=== PATIENT | female | born 2000 | race Caucasian/White ===

== ENCOUNTER 2022-02-27 16:49 | Emergency (ER) | payer OTHER, MEDICAID, SELFPAY ==
[2022-02-27 17:08] VITALS: BP 132/73; PULSE 93; RESP 16; TEMP 37; O2SAT 98; BMI 39.0
[2022-02-27 18:44] LABS: Influenza A - CEPHEID Flu A NEGATIVE (NEGATIVE); Influenza B - CEPHEID Flu B NEGATIVE (NEGATIVE); Respiratory Syncytial Virus Negative (Negative)
--- NOTE | 2022-02-27 19:15 | ED.URI ---
HPI - URI/Sore Throat General Chief Complaint: Upper Respiratory Symptoms Stated Complaint: Strep Throat Symptoms Time Seen by Provider: 02/27/22 17:38 Source: patient Mode of arrival: Ambulatory Related Data Allergies Allergy/AdvReac Type Severity Reaction Status Date / Time No Known Drug Allergies Allergy Verified 02/27/22 17:12 Patient History Social History Smoking Status: Current every day smoker Smoking Status: Current every day smoker tobacco type: vaping alcohol intake frequency: 0-2 drinks per day Substance Use Type: marijuana Exam Initial Vital Signs Initial Vital Signs: Vital Signs Temperature 98.6 F 02/27/22 17:08 Pulse Rate 93 H 02/27/22 17:08 Respiratory Rate 16 02/27/22 17:08 Blood Pressure 132/73 02/27/22 17:08 Pulse Oximetry 98 02/27/22 17:08 Oxygen Delivery Method 02/27/22 17:08 Course Orders Ordered: ED Orders 02/27/22 17:15 Throat Culture Stat 02/27/22 18:00 Covid-19 + FLU A/B + RSV - PCR Stat Vital Signs Vital signs: Vital Signs - 8 hr 02/27/22 17:08 Temperature 98.6 F Pulse Rate 93 H Respiratory Rate 16 Blood Pressure 132/73 Pulse Oximetry 98 Oxygen Delivery Method Room Air MDM - URI/Sore Throat Lab Data Labs: Point of Care Testing Rapid Strep A Negative Discharge Plan Departure Referrals: Miscellaneous,Doctor [Primary Care Provider] -
[2022-02-27 19:51] LABS: COVID-19 CEPHEID 4-PLEX PCR Negative (Negative)
== END 2022-02-27 21:27 | disposition left against medical advice (07) ==
PROVIDERS: Emergency Provider Emergency Medicine
DX: R68.89 Other general symptoms and signs (principal)
CPT/HCPCS: 0241U; 87070; 87077; 87147; 87880; 99282

== ENCOUNTER 2023-04-29 21:19 | Emergency (ER) | payer OTHER, MEDICAID, SELFPAY ==
[2023-04-29 21:26] VITALS: BP 134/80; PULSE 92; RESP 18; TEMP 36; O2SAT 99; BMI 36.2
[2023-04-29 22:07] LABS: Amorphous Sediment Urine 1+; Bacteria Urine Moderate (10-30); Culture Indicated Urine Cult Not Indicated; RBC Urine None Seen (0-5/HPF); Squamous Epithelial Cell Urine 10-30 /HPF (0-5/HPF); Urine Volume 10mL (spun); WBC Urine 0-1/HPF (0-5/HPF)
--- NOTE | 2023-04-30 00:44 | ED.FEMALEGU ---
HPI - Female Genitourinary General Chief complaint: Abdominal Pain Stated complaint: ABD Pain/thinks ectopic Time Seen by Provider: 04/30/23 00:34 Source: patient Mode of arrival: Ambulatory History of Present Illness HPI Narrative: 22-year-old female presents concerned that she may have an ectopic . Patient states that she had a Nexplanon device that is out of date. This morning when she wiped she noticed pink streaking on the toilet tissue. She has had intermittent right-sided pelvic pain for several weeks in his concerned that she may have an ectopic . Denies history of ectopic , did not take a home test prior to presentation to the emergency department. No medications taken at home for symptoms. Related Data Allergies Allergy/AdvReac Type Severity Reaction Status Date / Time No Known Drug Allergies Allergy Verified 02/27/22 17:12 Review of Systems Review of Systems Narrative: Otherwise negative Patient History tobacco type: vaping alcohol intake frequency: 0-2 drinks per day Substance Use Type: marijuana Exam Initial Vital Signs Initial Vital Signs: Vital Signs Temperature 96.8 F L 04/29/23 21:26 Pulse Rate 92 H 04/29/23 21:26 Respiratory Rate 18 04/29/23 21:26 Blood Pressure 134/80 04/29/23 21:26 Pulse Oximetry 99 04/29/23 21:26 Oxygen Delivery Method Room Air 04/29/23 21:26 Const: Awake, alert, no acute distress, nontoxic appearing Cardiac: regular rate, regular rhythm RESP: unlabored, clear bilaterally, no wheezing GI: Atraumatic, soft, right sided pelvic tenderness to deep palpation, no rebound or guarding MSK: Atraumatic, full range of motion, pulses equal Skin: Warm, Dry, intact, no rashes Neuro: AO x3, CN II-XII grossly intact, moves all extremities Course Orders Ordered: ED Orders 04/29/23 21:41 Urine Culture Stat Urine Microscopic Stat 04/30/23 00:43 US pelvic complete Stat Discontinued Medications Ondansetron HCl (Ondansetron 4 Mg/2 Ml Inj) 4 mg IV NOW PRN PRN Reason: Nausea And Vomiting Ondansetron HCl (Ondansetron 4 Mg Odt) 4 mg SL NOW PRN PRN Reason: Nausea And Vomiting Vital Signs Vital signs: Vital Signs - 8 hr 04/29/23 21:26 04/30/23 02:00 Temperature 96.8 F L 97.8 F Pulse Rate 92 H 82 Respiratory Rate 18 16 Blood Pressure 134/80 128/72 Pulse Oximetry 99 98 Oxygen Delivery Method Room Air Room Air MDM - Female Genitourinary Differential Diagnosis Differential diagnosis: Likely urinary tract infection, bacterial vaginosis and trichomoniasis Lab Data Labs: Lab Results 04/29/23 Range/Units 21:41 Urine RBC None seen (0-5/HPF) Urine WBC 0-1/hpf (0-5/HPF) Ur Squamous Epith Cells 10-30 /hpf H (0-5/HPF) Amorphous Sediment 1+ Urine Bacteria Moderate (10-30) H (None) Ur Culture Indicated? 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 Additional endovaginal scanning was necessary due to incomplete visualization of the adnexal and endometrial structures by transabdominal scanning. COMPARISON: None. FINDINGS: Uterus: Uterus is anteverted and normal in size at 5.9 x 3 x 2.2 cm. The myometrium is homogeneous. The endometrium measures 3 mm combined thickness. No endometrial mass or fluid. Ovaries: The right ovary measures 3.1 x 1.9 x 1.6 cm, with a calculated ovarian volume of 4.9 cc. The left ovary measures 2 x 1.5 x 1.6 cm, with a calculated ovarian volume of 2.5 cc. The ovaries have a normal sonographic appearance. Less than 12 follicles can be seen in each ovary.. No adnexal masses are seen. Normal arterial and venous flow is seen in bilateral ovaries on color Doppler images. Other: No pathologic free abdominal or pelvic fluid. IMPRESSION: Unremarkable ultrasound examination uterus and bilateral ovaries. We strive to produce accurate, complete, and clear reports of imaging services. To assist us in improving patient care, this report was composed using standard report templates and voice recognition software. Therefore, it may contain abnormal punctuation, insertions and/or omissions. Occasional wrong-word or sound-alike substitutions may occur. Though we review the report and make efforts to correct it, we do recommend that the report be read carefully in proper context to recognize any text inaccuracies. Dictated by: Sarath Valencia M.D. on 04/30/2023 at 1:42 Approved by: Sarath Valencia M.D. on 04/30/2023 at 1:44 [facility] Narrative Medical decision making narrative: Well-appearing patient with several weeks of pelvic pain and then small amount of pink tinge when she wiped today. Patient is very concerned that she may have an ectopic even though she did not take a test prior to arrival. She does have an out of date Nexplanon device in her left arm. Abdomen is soft but she does have tenderness in the deep pelvic region. Urine test negative. They were bacteria in the urine however numerous squamous cells, patient denying urinary symptoms at this time. Ultrasound shows no acute pelvic pathology, no evidence of ectopic or abnormal ovarian cystic lesions. Patient reassured of normal exam and imaging findings, counseled to follow up with OBGYN for removal of her Nexplanon and further management of her pelvic pain. Discharge Plan Departure Patient Disposition: Home Clinical Impression: Pelvic pain Instructions: DI for Pelvic Pain Activity Restrictions/Additional Instructions: Follow up [facility] OBGYN. Tylenol and motrin as needed for pain. Referrals: Gerard Bass MD [Physician] - Miscellaneous,MD Gustavo [Primary Care Provider] - Stand Alone Forms: Patient Portal/API, Work Release Note
[2023-04-30 02:00] VITALS: BP 128/72; PULSE 82; RESP 16; TEMP 36.6; O2SAT 98
== END 2023-04-30 02:00 | disposition home or self-care (01) ==
PROVIDERS: Emergency Provider Emergency Medicine
DX: R10.2 Pelvic and perineal pain (principal); Z97.5 Presence of (intrauterine) contraceptive device
CPT/HCPCS: 76830; 76856; 81003; 81015; 81025; 87086; 93975; 99282; 99283

== ENCOUNTER 2023-05-18 17:52 | Emergency (ER) | payer OTHER, MEDICAID, SELFPAY ==
[2023-05-18 17:59] VITALS: BP 128/81; PULSE 96; RESP 18; TEMP 36.8; O2SAT 99; BMI 42.3
--- NOTE | 2023-05-18 18:30 | DI.RAD.S_ITS ---
PROCEDURE: XR HIP W PEL IF DONE RT 2V INDICATIONS: R hip pain TECHNIQUE: AP pelvis with lateral view(s) of the right hip(s). COMPARISON: None. FINDINGS: Bones: No fractures or dislocations. Pelvic ring appears intact. No suspicious bony lesions. Soft tissues: The visualized bowel gas pattern is normal. No suspicious soft tissue calcifications. IMPRESSION: No right hip fracture or dislocation. No evidence of avascular necrosis. Dictated by: Sarath Valencia M.D. on 05/18/2023 at 18:56 Approved by: Sarath Valencia M.D. on 05/18/2023 at 18:57
--- NOTE | 2023-05-18 19:36 | ED.LOWEXIN ---
HPI - Extremity Injury (Lower) General Chief Complaint: Extremity Injury, Lower Stated Complaint: Hip px shooting to knee cap Time Seen by Provider: 05/18/23 18:29 Source: patient Mode of arrival: Ambulatory Limitations: no limitations History of Present Illness HPI Narrative: 22-year-old female here for evaluation of right hip pain. She states that she fell several months ago landing on her right hip. Since that time she has had discomfort specifically with standing and walking. Occasionally feels like her hip is getting stuck. Has not been evaluated for this past. Has not tried anything for the symptoms. She states that it feels like it is in her groin and radiates down to her knee. Related Data Previous Rx's Medication Instructions Recorded tramadol 50 mg tablet 50 mg PO Q8H PRN pain #10 tabs 05/18/23 tramadol 50 mg tablet 50 mg PO Q8H PRN pain #10 tabs 05/18/23 Allergies Allergy/AdvReac Type Severity Reaction Status Date / Time No Known Drug Allergies Allergy Verified 02/27/22 17:12 Review of Systems Constitutional Constitutional: Reports system reviewed and no additional complaints, except as documented Musculoskeletal Musculoskeletal: Reports system reviewed and no additional complaints, except as documented Integumentary/Breasts Skin/Breast: Reports system reviewed and no additional complaints, except as documented Patient History Social History Smoking Status: Current every day smoker Smoking Status: Current every day smoker tobacco type: vaping alcohol intake frequency: 0-2 drinks per day Substance Use Type: marijuana Exam Initial Vital Signs Initial Vital Signs: Vital Signs Temperature 98.3 F 05/18/23 17:59 Pulse Rate 96 H 05/18/23 17:59 Respiratory Rate 18 05/18/23 17:59 Blood Pressure 128/81 05/18/23 17:59 Pulse Oximetry 99 05/18/23 17:59 Oxygen Delivery Method Room Air 05/18/23 17:59 HENSD Head: normal to inspection and normocephalic Neuro General: patient alert and patient awake Gait: normal gait Extrem Other: No gross deformities. Minimal if any tenderness along the greater trochanter on the right. Some discomfort along the SI joint on the right. Course Orders Ordered: ED Orders 05/18/23 18:30 XR hip w pel if done RT 2V Stat Vital Signs Vital signs: Vital Signs - 8 hr 05/18/23 17:59 05/18/23 19:50 Temperature 98.3 F Pulse Rate 96 H 84 Respiratory Rate 18 14 Blood Pressure 128/81 133/77 Pulse Oximetry 99 96 Oxygen Delivery Method Room Air Room Air MDM - Extremity Injury (Lower) Imaging Data Extremity x-ray #1: Radiologist's Impression: PROCEDURE: XR HIP W PEL IF DONE RT 2V INDICATIONS: R hip pain TECHNIQUE: AP pelvis with lateral view(s) of the right hip(s). COMPARISON: None. FINDINGS: Bones: No fractures or dislocations. Pelvic ring appears intact. No suspicious bony lesions. Soft tissues: The visualized bowel gas pattern is normal. No suspicious soft tissue calcifications. IMPRESSION: No right hip fracture or dislocation. No evidence of avascular necrosis. [facility] Narrative Medical decision making narrative: No fractures or dislocations. Low suspicion for septic joint x-rays discuss this with the patient. Advised that she make contact with the primary care doctor so that she can have further workup to include potential physical therapy her even more advanced imaging such as an MRI. There was a possibility for soft tissue injury such as a labral tear although no emergent MRI needed. Patient was given return precautions. Advised she do Tylenol and ibuprofen for discomfort. Discharge Plan Departure Patient Disposition: Home Clinical Impression: Hip pain Instructions: DI for Hip Pain Activity Restrictions/Additional Instructions: I do recommend that you contact [phone] to help you establish a primary care doctor as you are most likely going to need further evaluation to include either physical therapy or more advanced imaging like an MRI. Continue to take Tylenol/ibuprofen for discomfort. Return to the emergency department for new symptoms. Prescriptions: New tramadol 50 mg tablet 50 mg PO Q8H PRN (Reason: pain) Qty: 10 0RF tramadol 50 mg tablet 50 mg PO Q8H PRN (Reason: pain) Qty: 10 0RF Referrals: Miscellaneous,DoctorMD [Primary Care Provider] - Stand Alone Forms: Patient Portal/API
[2023-05-18 19:50] VITALS: BP 133/77; PULSE 84; RESP 14; O2SAT 96
== END 2023-05-18 19:51 | disposition home or self-care (01) ==
PROVIDERS: Emergency Provider Emergency Medicine
DX: M25.551 Pain in right hip (principal)
CPT/HCPCS: 73502; 99281; 99283

== ENCOUNTER 2023-09-18 18:26 | Emergency (ER) | payer OTHER, MEDICAID, SELFPAY ==
[2023-09-18 18:38] VITALS: BP 146/100; PULSE 102; RESP 18; TEMP 37.3; O2SAT 98; BMI 33.5
[2023-09-18 19:09] LABS: Alanine Aminotransferase 35 IU/L (<35); Albumin 4.7 g/dL (3.5-5.0); Albumin Globulin Ratio 1.3 (1.0-2.8); Alkaline Phosphatase 53 U/L (38-126); Aspartate Aminotransferase 37 IU/L (14-36); BUN Creatinine Ratio 14.3 (6-22); Bilirubin Total 5.5 mg/dL (0.2-1.3); Blood Urea Nitrogen 11 mg/dL (7-17); Calcium 9.1 mg/dL (8.4-10.2); Carbon Dioxide 21 mmol/L (22-32); Chloride 107 mmol/L (98-107); Estimated Glomerular Filt Rate > 60 mL/min (>60); Globulin 3.6 g/dL (1.7-4.1); Glucose 93 mg/dL (70-100); HEMOLYSIS < 15 (0-50); Lipase 65 U/L (23-300); Potassium 3.8 mmol/L (3.4-5.1); Sodium 139 mmol/L (137-145); Total Protein 8.3 g/dL (6.3-8.2)
[2023-09-18 19:18] LABS: Bacteria Urine Few (2-10); RBC Urine None Seen (0-5/HPF); Squamous Epithelial Cell Urine 1-5 /HPF (0-5/HPF); Urine Volume 10mL (spun); WBC Urine 1-5/HPF (0-5/HPF)
[2023-09-18 19:19] LABS: Culture Indicated Urine Cult Not Indicated
[2023-09-18 19:23] LABS: Add Manual Diff / Slide Review NO; Basophils Absolute Auto 0 /uL (0-100); Basophils Percent Auto 0.2 % (0-2); Eosinophils Absolute Auto 300 /uL (0-450); Eosinophils Percent Auto 1.6 % (2-4); Hematocrit 31.4 % (36-46); Hemoglobin 11.4 g/dL (12.0-16.0); Lymphocytes Absolute Auto 5400 /uL (1100-4500); Lymphocytes Percent Auto 25.5 % (25-40); Mean Corpuscular HGB Conc 36.2 % (30-36); Mean Corpuscular Hemoglobin 31.5 PG (26-34); Mean Corpuscular Volume 86.8 fL (80-100); Monocytes Absolute Auto 1400 /uL (0-900); Monocytes Percent Auto 6.5 % (3-14); Neutrophils Absolute Auto 14100 /uL (1500-7000); Neutrophils Percent Auto 66.2 % (50-75); Platelet Count 545 X10^3/uL (150-400); Red Blood Cell Count 3.62 X10^6/uL (4.0-5.2); Red Cell Distribution Width 14.5 % (11.6-14.8); White Blood Cell Count 21.3 X10^3/uL (4.5-11.0)
--- NOTE | 2023-09-18 21:37 | ED_ITS ---
HPI - Female Genitourinary General Chief complaint: Urogenital-Female Stated complaint: blood in urine, poss jaundice Time Seen by Provider: 09/18/23 20:24 Source: patient Mode of arrival: Ambulatory History of Present Illness HPI Narrative: 22-year-old female presents for hematuria, possible yellowing of her eyes. Patient states that she has been in her usual state of health when she noticed a small amount of blood in her urine today. She placed a tampon in her vagina to make sure that there was no blood coming from her vagina contributing to the blood in her urine. Patient also states that her boyfriend noticed her eyes may be somewhat yellow today, prompting her visit to the emergency department. Patient denies pain, Tylenol use, alcohol use. Patient states she has been in her usual state of health up until today. Related Data Previous Rx's Medication Instructions Recorded tramadol 50 mg tablet 50 mg PO Q8H PRN pain #10 tabs 05/18/23 tramadol 50 mg tablet 50 mg PO Q8H PRN pain #10 tabs 05/18/23 Allergies Allergy/AdvReac Type Severity Reaction Status Date / Time No Known Drug Allergies Allergy Verified 09/18/23 18:44 Review of Systems Review of Systems Narrative: See HPI Patient History tobacco type: vaping alcohol intake frequency: a few times a month Substance Use Type: marijuana Exam Initial Vital Signs Initial Vital Signs: Vital Signs Temperature 99.2 F 09/18/23 18:38 Pulse Rate 102 H 09/18/23 18:38 Respiratory Rate 18 09/18/23 18:38 Blood Pressure 146/100 H 09/18/23 18:38 Pulse Oximetry 98 09/18/23 18:38 Oxygen Delivery Method Room Air 09/18/23 18:38 Const: Awake, alert, no acute distress, nontoxic appearing HEENT: mild scleral icterus, EOMI Cardiac: regular rate, regular rhythm RESP: unlabored, clear bilaterally, no wheezing GI: Soft, nontender, nondistended, no rebound, no guarding MSK: Atraumatic, full range of motion, no CVA tenderness Skin: Warm, Dry, intact, no rashes Neuro: AO x3, CN II-XII grossly intact, moves all extremities Course Orders Ordered: Discontinued Medications Ondansetron HCl (Ondansetron 4 Mg/2 Ml Inj) 4 mg IV NOW PRN PRN Reason: Nausea And Vomiting Ondansetron HCl (Ondansetron 4 Mg Odt) 4 mg PO NOW PRN PRN Reason: Nausea And Vomiting Vital Signs Vital signs: Vital Signs - 8 hr 09/18/23 18:38 Temperature 99.2 F Pulse Rate 102 H Respiratory Rate 18 Blood Pressure 146/100 H Pulse Oximetry 98 Oxygen Delivery Method Room Air MDM - Female Genitourinary Differential Diagnosis Differential diagnosis: Likely urinary tract infection, bacterial vaginosis and trichomoniasis Lab Data 09/18/23 18:50 09/18/23 18:50 Labs: Lab Results 09/18/23 Range/Units 18:50 WBC 21.3 H (4.5-11.0) X10^3/uL RBC 3.62 L (4.0-5.2) X10^6/uL Hgb 11.4 L (12.0-16.0) g/dL Hct 31.4 L (36-46) % MCV 86.8 (80-100) fL MCH 31.5 (26-34) PG MCHC 36.2 H (30-36) % RDW 14.5 (11.6-14.8) % Plt Count 545 H (150-400) X10^3/uL Neut % (Auto) 66.2 (50-75) % Lymph % (Auto) 25.5 (25-40) % [place] % (Auto) 6.5 (3-14) % Eos % (Auto) 1.6 L (2-4) % Baso % (Auto) 0.2 (0-2) % Neut # (Auto) 28928 H (9945-7863) /uL Lymph # (Auto) 5400 H (2511-2225) /uL [place] # (Auto) 1400 H (0-900) /uL Eos # (Auto) 300 (0-450) /uL Baso # (Auto) 0 (0-100) /uL Sodium 139 (137-145) mmol/L Potassium 3.8 (3.4-5.1) mmol/L Chloride 107 (98-107) mmol/L Carbon Dioxide 21 L (22-32) mmol/L BUN 11 (7-17) mg/dL Creatinine 0.77 (0.52-1.04) mg/dL Estimated GFR > 60 (>60) mL/min BUN/Creatinine Ratio 14.3 (6-22) Glucose 93 (70-100) mg/dL Calcium 9.1 (8.4-10.2) mg/dL Total Bilirubin 5.5 H (0.2-1.3) mg/dL AST 37 H (14-36) IU/L ALT 35 H (<35) IU/L Alkaline Phosphatase 53 (38-126) U/L Total Protein 8.3 H (6.3-8.2) g/dL Albumin 4.7 (3.5-5.0) g/dL Globulin 3.6 (1.7-4.1) g/dL Albumin/Globulin Ratio 1.3 (1.0-2.8) Lipase 65 (23-300) U/L Urine RBC None seen (0-5/HPF) Urine WBC 1-5/hpf (0-5/HPF) Ur Squamous Epith Cells 1-5 /hpf D (0-5/HPF) Urine Bacteria Few (2-10) H (None) Ur Culture Indicated? Cult not indicated Vol Urine Centrifuged 10ml (spun) Point of Care Testing Test Results Negative Urine Dip Bedside Urine Glucose Negative Bedside Urine Bilirubin - Negative Bedside Urine Ketone - Negative Urine Specific [place] 1.025 Bedside Urine Occult Blood +++ Bedside Urine pH 5.5 Bedside Urine Protein +/- 15 Bedside Urine Urobilinogen - Negative Bedside Urine Nitrite - Negative Bedside Urine Leukocytes +/- [address] scan - abdomen/pelvis: Radiologist's Impression: PROCEDURE: CT ABDOMEN PELVIS W CON INDICATIONS: HEMATURIA, ELEVATED LIVER ENZYMES TECHNIQUE: After the administration of intravenous contrast, axial sections acquired from the lung bases to the pubic symphysis. Coronal and sagittal reformats were performed. For radiation dose reduction, the following was used: automated exposure control, adjustment of mA and/or kV according to patient size. COMPARISON: None. FINDINGS: Image quality: Diagnostic. Lower Chest: No significant findings. ABDOMEN: Liver: No solid mass. Gallbladder: No radiopaque gallstones or wall thickening. Biliary ducts: No biliary dilation. Pancreas: No ductal dilation. Spleen: Spleen is enlarged, measuring up to 14.5 cm in anterior-posterior dimension. Adrenal Glands: No adrenal nodules. Kidneys and Ureters: No hydronephrosis. No solid mass. No complex renal cystic lesion which requires follow up. Subcentimeter hypoattenuating lesion in the left kidney is most likely a benign cyst. Stomach and Bowel: Appendix is dilated, measuring up to 9 mm in diameter. No pericholecystic inflammatory changes are seen. No appendicolith. Colon is under distended. Small bowel loops and stomach are unremarkable. Peritoneum: No abnormal intraperitoneal fluid. No free air. Ventral Wall: No significant ventral hernia. Abdominal Nodes: No retroperitoneal or mesenteric adenopathy by size criteria. Vessels: Aorta and inferior vena cava are normal in size. PELVIS: Pelvic Organs: Unremarkable. Bladder: No bladder wall thickening, accounting for underdistention. Pelvic Nodes: No enlarged lymph nodes. Miscellaneous: No inguinal hernias are seen. Bones: No aggressive osseous abnormality. IMPRESSION: 1. Diffusely dilated appendix without appendicolith or surrounding inflammatory changes. Findings are favored to be chronic although mild or early acute appendicitis cannot be entirely excluded. Recommend correlation with clinical findings. 2. Splenomegaly. 3. No renal or ureteral calculus or hydronephrosis. Approved by: Satinder Taylor M.D. on 09/18/2023 at 22:09 MDM Narrative Medical decision making narrative: Slight blood in urine and yellowing around eyes. Patient states she was in her usual state of health until symptoms noticed today. On exam patient has very trace yellowing of sclera, but no pain or tenderness anywhere. Laboratory work obtained. Labs show WBC count 21.3, hemoglobin 11.4, platelets 545, sodium 139, potassium 3.8, creatinine 0.77, T bili 5.5, AST 37, ALT 35, alkaline phos 53. No priors for comparison, this is patient's 1st set of labs in our system. CT of the abdomen and pelvis shows splenomegaly, dilated appendix, no other findings. UA wtih blood, no bacteria present. Uncertain significance of these findings. No source of infection found; despite elevated wbc count patient has no source of infection and otherwise has no symptoms. Patient was informed of all lab and imaging findings, I recommended close follow up with GI. She was counseled that if her symptoms were to change or worsen she should come to the ER for repeat evaluation. GI referral number provided Discharge Plan Departure Patient Disposition: Home Clinical Impression: Elevated liver enzymes, Hematuria Instructions: DI for Hematuria, Liver Function Tests Activity Restrictions/Additional Instructions: Your laboratory work today showed several abnormalities. Your white blood cell count was high, your bilirubin, liver enzymes, was elevated as well. You did have a small amount of red blood cells in your urine, but your hemoglobin today is relatively normal. On your CT scan your spleen was slightly enlarged, but there were no other abnormalities identified. I do not know the cause behind these abnormalities, but I do recommend that you follow up with the primary care doctor for further testing. A referral to GI has also been made. Prescriptions: No Action tramadol 50 mg tablet 50 mg PO Q8H PRN (Reason: pain) Qty: 10 0RF tramadol 50 mg tablet 50 mg PO Q8H PRN (Reason: pain) Qty: 10 0RF Referrals: Juan Wilson MD [Non-Staff] - Miscellaneous,MD Gustavo [Primary Care Provider] - Stand Alone Forms: Patient Portal/API
== END 2023-09-19 00:09 | disposition home or self-care (01) ==
PROVIDERS: Emergency Provider Emergency Medicine
DX: R74.8 Abnormal levels of other serum enzymes (principal); R31.9 Hematuria, unspecified
CPT/HCPCS: 36415; 74177; 80053; 81003; 81015; 81025; 83690; 85025; 99283; 99284; Q9967

== ENCOUNTER 2023-09-21 16:43 | Emergency (ER) | payer OTHER, MEDICAID, SELFPAY ==
[2023-09-21] VITALS (15 sets, daily range): BP systolic 147–174; BP diastolic 77–92; PULSE 100–131; RESP 18–22; TEMP 36.6–37.1; O2SAT 97–100; BMI 36.2
--- NOTE | 2023-09-21 17:26 | EKG_ITS ---
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
--- NOTE | 2023-09-21 17:57 | DI.US.S_ITS ---
PROCEDURE: US ABDOMEN LIMITED INDICATIONS: ruq TECHNIQUE: Real-time scanning was performed of the abdominal and retroperitoneal organs, with image documentation. COMPARISON: [facility], CT, CT ABDOMEN PELVIS W CON, 09/18/2023, 21:38. FINDINGS: Liver: Liver is enlarged measuring 18.9 cm and is diffusely increased in echogenicity. Relatively high velocity flow is seen in the main portal vein which demonstrates about a pedal flow and normal caliber. Gallbladder: No gallstones. No wall thickening. No pericholecystic edema. Negative sonographic Pierce's sign. Biliary ducts: Intrahepatic bile ducts are non-dilated. Extrahepatic bile duct caliber measures 5.2 mm. Normal is 6-7 mm or less in diameter, or 10 mm or less post-cholecystectomy. Pancreas: Visualized portions of the pancreas are sonographically normal. Miscellaneous: No free abdominal fluid. IMPRESSION: 1. Hepatomegaly and diffusely increased hepatic echogenicity are nonspecific, but most commonly encountered in the setting of hepatic steatosis. However, other causes of hepatocellular disease are not excluded. Recommend clinical correlation. 2. Normal gallbladder. Approved by: Satinder Taylor M.D. on 09/21/2023 at 20:28
[2023-09-21 18:10] LABS: INR 1.3 (0.9-1.3); Prothrombin Time 15.1 SECONDS (9.4-12.5)
[2023-09-21 18:15] LABS: Alanine Aminotransferase 37 IU/L (<35); Alkaline Phosphatase 60 U/L (38-126); Aspartate Aminotransferase 56 IU/L (14-36); BUN Creatinine Ratio 16.7 (6-22); Bilirubin Total 9.9 mg/dL (0.2-1.3); Blood Urea Nitrogen 13 mg/dL (7-17); Carbon Dioxide 20 mmol/L (22-32); Estimated Glomerular Filt Rate > 60 mL/min (>60); Glucose 107 mg/dL (70-100); HEMOLYSIS < 15 (0-50); Lactate (Lactic Acid) 1.3 mmol/L (0.7-2.1)
[2023-09-21 18:17] LABS: Albumin Globulin Ratio 1.3 (1.0-2.8); Calcium 9.4 mg/dL (8.4-10.2); Chloride 107 mmol/L (98-107); Globulin 3.8 g/dL (1.7-4.1); Lipase 62 U/L (23-300); Potassium 3.9 mmol/L (3.4-5.1); Sodium 139 mmol/L (137-145); Total Protein 8.8 g/dL (6.3-8.2)
[2023-09-21 18:18] LABS: Acetaminophen < 10 ug/mL (10-30); Ethanol (ETOH) < 10 mg/dL; Salicylate < 1.0 mg/dL (<20)
[2023-09-21 18:27] LABS: Hematocrit 22.6 % (36-46); Mean Corpuscular HGB Conc 35.6 % (30-36); Mean Corpuscular Hemoglobin 33.7 PG (26-34); Mean Corpuscular Volume 94.6 fL (80-100); Platelet Count 512 X10^3/uL (150-400); Red Blood Cell Count 2.39 X10^6/uL (4.0-5.2); Red Cell Distribution Width 15.5 % (11.6-14.8); White Blood Cell Count 27.6 X10^3/uL (4.5-11.0)
[2023-09-21 18:29] LABS: Add Manual Diff / Slide Review YES
[2023-09-21 18:30] LABS: Monotest Negative (Negative)
--- NOTE | 2023-09-21 18:37 | ED_ITS ---
HPI - Recheck/Abnormal Lab/Rx General Chief Complaint: Recheck/Abnormal Lab/Rx Stated Complaint: ear issues, intense headache, fatigue Time Seen by Provider: 09/21/23 17:56 Source: patient Mode of arrival: Ambulatory History of Present Illness HPI narrative: Patient is a 22-year-old female without significant past medical history presenting today with ongoing weakness fatigue and worsening jaundice. She was seen evaluated here on September 17 found to have elevated bilirubin of 5.5 elevated liver enzymes and a normal CT. She was instructed to follow up with the primary care provider. She has not been able to get in she does not really have a PCP. She denies any abdominal pain nausea vomiting worse sore throat. She has not had any recent travel she does not drink in fact she only drinks once a month she has not taken excessive amounts of Tylenol. She reports that she started a keto diet eating excessive amounts of deli meat and processed cheese. She reports that there was a listeria outbreak with 1 of the deli meat. She is here today with increased jaundiced but no other symptoms Related Data Previous Rx's Medication Instructions Recorded tramadol 50 mg tablet 50 mg PO Q8H PRN pain #10 tabs 05/18/23 tramadol 50 mg tablet 50 mg PO Q8H PRN pain #10 tabs 05/18/23 Allergies Allergy/AdvReac Type Severity Reaction Status Date / Time No Known Drug Allergies Allergy Verified 09/18/23 18:44 Patient History Social History Smoking Status: Current every day smoker Smoking Status: Current every day smoker tobacco type: vaping alcohol intake frequency: a few times a month Substance Use Type: marijuana Exam Initial Vital Signs Initial Vital Signs: Vital Signs Temperature 98.8 F 09/21/23 17:19 Pulse Rate 131 H 09/21/23 17:19 Respiratory Rate 18 09/21/23 17:19 Blood Pressure 174/91 H 09/21/23 17:19 Pulse Oximetry 98 09/21/23 17:19 Oxygen Delivery Method Room Air 09/21/23 17:19 GENERAL: Alert jaundiced 22-year-old female morbid obesity and in no acute distress. HEENT: Head atraumatic,EOMI, pupils reactive, face symmetric, moist mucous membranes CARDIOVASCULAR: Regular rate and rhythm without murmurs, rubs or gallops. RESPIRATORY: Breath sounds equal bilaterally, no wheezes rales or rhonchi. ABDOMEN: Soft, nontender. Normoactive bowel sounds all 4 quadrants. No guarding or rebound. Negative right upper quadrant pain EXTREMITIES: Normal range of motion, no clubbing or edema. Neurovascularly intact NEUROLOGICAL: Alert and oriented x4.Normal gait and speech. SKIN: Warm, dry, no laceration, no petechiae, no rashes or lesions. Course Orders Ordered: ED Orders 09/21/23 18:40 COVID19 -Nasal RAPID Stat 09/21/23 18:44 Consult to HAND DECORATOR - Salesperson [employer] Stat 09/22/23 00:30 Urine Culture Stat Urine Drug Screen, Rapid Stat Urine Microscopic Stat Sodium Chloride (Normal Saline 0.9%) 1,000 mls @ 125 mls/hr IV CONT LEXIE Last Infusion: 09/22/23 03:24 Dose: Infused Documented By: Admin: 09/22/23 01:05 Dose: 125 mls/hr Documented By: Ondansetron HCl (Ondansetron 4 Mg/2 Ml Inj) 4 mg IV NOW PRN PRN Reason: Nausea And Vomiting Ondansetron HCl (Ondansetron 4 Mg Odt) 4 mg PO NOW PRN PRN Reason: Nausea And Vomiting Discontinued Medications Sodium Chloride (Normal Saline 0.9%) 1,000 mls @ 1,000 mls/hr IV BOLUS ONE Stop: 09/21/23 18:31 Last Infusion: 09/22/23 00:45 Dose: Infused Documented By: Admin: 09/21/23 19:11 Dose: 1,000 mls/hr Documented By: JT Piperacillin Sod/Tazobactam (Sod 4.5 gm/ Sodium Chloride) 100 mls @ 200 mls/hr IV NOW ONE Stop: 09/21/23 18:54 Last Infusion: 09/21/23 19:46 Dose: Infused Documented By: Admin: 09/21/23 19:12 Dose: 200 mls/hr Documented By: JT Ketorolac Tromethamine (Ketorolac 30 Mg/Ml Vial) 15 mg IV NOW ONE Stop: 09/21/23 21:27 Last Admin: 09/21/23 21:41 Dose: 15 mg Documented By: Morphine Sulfate (Morphine 2 Mg/Ml Inj) 2 mg IV NOW ONE Stop: 09/22/23 01:07 Last Admin: 09/22/23 01:12 Dose: 2 mg Documented By: AB Vital Signs Vital signs: Vital Signs - 8 hr 09/21/23 19:46 09/21/23 20:30 09/21/23 21:00 Pulse Rate 124 H 111 H 110 H Blood Pressure Pulse Oximetry 100 100 99 Oxygen Delivery Method Room Air 09/21/23 21:30 09/21/23 22:00 09/21/23 22:30 Pulse Rate 114 H 107 H 112 H Blood Pressure Pulse Oximetry 99 97 99 Oxygen Delivery Method 09/21/23 23:00 09/21/23 23:30 09/22/23 00:00 Pulse Rate 106 H 105 H 99 H Blood Pressure Pulse Oximetry 99 98 100 Oxygen Delivery Method Room Air 09/22/23 00:12 09/22/23 00:12 09/22/23 00:22 Pulse Rate 118 H Blood Pressure 137/56 L 140/74 Pulse Oximetry 96 Oxygen Delivery Method 09/22/23 00:22 09/22/23 00:30 09/22/23 00:31 Pulse Rate 124 H 105 H 109 H Blood Pressure Pulse Oximetry 100 98 98 Oxygen Delivery Method Room Air 09/22/23 00:31 09/22/23 01:00 09/22/23 01:00 Pulse Rate 101 H Blood Pressure 159/88 H 161/78 H Pulse Oximetry 99 Oxygen Delivery Method 09/22/23 01:30 09/22/23 01:31 09/22/23 01:31 Pulse Rate 90 102 H Blood Pressure 156/69 H Pulse Oximetry 99 98 Oxygen Delivery Method 09/22/23 01:56 09/22/23 02:00 09/22/23 02:13 Pulse Rate 105 H 114 H Blood Pressure 157/81 H Pulse Oximetry 98 98 Oxygen Delivery Method 09/22/23 02:30 09/22/23 03:00 09/22/23 03:14 Pulse Rate 112 H 116 H 118 H Blood Pressure Pulse Oximetry 98 100 99 Oxygen Delivery Method Room Air Room Air 09/22/23 03:14 09/22/23 03:15 09/22/23 03:16 Pulse Rate 117 H Blood Pressure 196/93 H 125/58 L Pulse Oximetry 99 Oxygen Delivery Method Room Air MDM - Recheck/Abnormal Lab/Rx Lab Data 09/21/23 17:53 09/21/23 17:53 Labs: Lab Results 09/21/23 09/21/23 09/22/23 Range/Units 17:53 18:40 00:30 WBC 27.6 H (4.5-11.0) X10^3/uL RBC 2.39 L (4.0-5.2) X10^6/uL Hgb 8.0 L (12.0-16.0) g/dL Hct 22.6 L (36-46) % MCV 94.6 D (80-100) fL MCH 33.7 (26-34) PG MCHC 35.6 (30-36) % RDW 15.5 H (11.6-14.8) % Plt Count 512 H (150-400) X10^3/uL Neut % (Auto) Not Reportable Lymph % (Auto) Not Reportable [place] % (Auto) Not Reportable Eos % (Auto) Not Reportable Baso % (Auto) Not Reportable Lymph # (Auto) Not Reportable [place] # (Auto) Not Reportable Baso # (Auto) Not Reportable Total Counted 100 Seg Neutrophils % 71.0 H (38-70) % Band Neutrophils % 4.0 (3-7) % Lymphocytes % (Manual) 18.0 L (25-45) % Monocytes % (Manual) 3.0 (2-11) % Eosinophils % (Manual) 1.0 L (2-4) % Basophils % (Manual) 2.0 H (0-1) % Metamyelocytes % 1.0 H (-0) % Neutrophils # (Manual) 93645 H (2377-3976) /uL Nucleated RBCs 7 H ( - 0) #/Diff RBC Morphology See below Anisocytosis 1+ H Macrocytosis 1+ H PT 15.1 H (9.4-12.5) SECONDS INR 1.3 (0.9-1.3) Sodium 139 (137-145) mmol/L Potassium 3.9 (3.4-5.1) mmol/L Chloride 107 (98-107) mmol/L Carbon Dioxide 20 L (22-32) mmol/L BUN 13 (7-17) mg/dL Creatinine 0.78 (0.52-1.04) mg/dL Estimated GFR > 60 (>60) mL/min BUN/Creatinine Ratio 16.7 (6-22) Glucose 107 H (70-100) mg/dL Lactate 1.3 (0.7-2.1) mmol/L Calcium 9.4 (8.4-10.2) mg/dL Total Bilirubin 9.9 H (0.2-1.3) mg/dL AST 56 H (14-36) IU/L ALT 37 H (<35) IU/L Alkaline Phosphatase 60 (38-126) U/L Total Protein 8.8 H (6.3-8.2) g/dL Albumin 5.0 (3.5-5.0) g/dL Globulin 3.8 (1.7-4.1) g/dL Albumin/Globulin Ratio 1.3 (1.0-2.8) Lipase 62 (23-300) U/L Urine RBC 5-10/hpf H (0-5/HPF) Urine WBC 1-5/hpf (0-5/HPF) Ur Squamous Epith Cells 5-10 /hpf H (0-5/HPF) Urine Bacteria Moderate (10-30) H (None) Ur Culture Indicated? Cult not indicated Vol Urine Centrifuged 10ml (spun) Salicylates < 1.0 (<20) mg/dL U Opiates 300ng/mL cut Negative (Negative) Ur Oxycodone Screen Negative (Negative) Urine Methadone Screen Negative (Negative) Acetaminophen < 10 (10-30) ug/mL Ur Barbiturates Screen Negative (Negative) U Tricyclic Antidepress Negative (Negative) Ur Phencyclidine Scrn Negative (Negative) Ur Amphetamines Screen Negative (Negative) U Methamphetamines Scrn Negative (Negative) Ur MDMA Scrn (Ecstasy) Negative (Negative) U Benzodiazepines Scrn Negative (Negative) Urine Cocaine Screen Negative (Negative) U Marijuana (THC) Screen Positive H (Negative) Urine pH TNP Urine Specific [place] TNP Ethyl Alcohol < 10 ( - 10) mg/dL Ur Creatinine TNP SARS-CoV-2 (PCR) Negative (Negative) Monoscreen Negative (Negative) Point of Care Testing Test Results Negative Urine Dip Bedside Urine Glucose Negative Bedside Urine Bilirubin - Negative Bedside Urine Ketone - Negative Urine Specific [place] 1.015 Bedside Urine Occult Blood +++ Bedside Urine pH 5.5 Bedside Urine Protein +/- 15 Bedside Urine Urobilinogen - Negative Bedside Urine Nitrite - Negative Bedside Urine Leukocytes + 70 Esterase Imaging Data US - abdomen: Radiologist's Impression: PROCEDURE: US ABDOMEN LIMITED INDICATIONS: ruq TECHNIQUE: Real-time scanning was performed of the abdominal and retroperitoneal organs, with image documentation. COMPARISON: [facility], CT, CT ABDOMEN PELVIS W CON, 09/18/2023, 21:38. FINDINGS: Liver: Liver is enlarged measuring 18.9 cm and is diffusely increased in echogenicity. Relatively high velocity flow is seen in the main portal vein which demonstrates about a pedal flow and normal caliber. Gallbladder: No gallstones. No wall thickening. No pericholecystic edema. Negative sonographic Pierce's sign. Biliary ducts: Intrahepatic bile ducts are non-dilated. Extrahepatic bile duct caliber measures 5.2 mm. Normal is 6-7 mm or less in diameter, or 10 mm or less post-cholecystectomy. Pancreas: Visualized portions of the pancreas are sonographically normal. Miscellaneous: No free abdominal fluid. IMPRESSION: 1. Hepatomegaly and diffusely increased hepatic echogenicity are nonspecific, but most commonly encountered in the setting of hepatic steatosis. However, other causes of hepatocellular disease are not excluded. Recommend clinical correlation. 2. Normal gallbladder. Approved by: Satinder Taylor M.D. on 09/21/2023 at 20:28 CT Ab/Pelvis 09/18/23: Radiologist's Impression: PROCEDURE: CT ABDOMEN PELVIS W CON INDICATIONS: HEMATURIA, ELEVATED LIVER ENZYMES TECHNIQUE: After the administration of intravenous contrast, axial sections acquired from the lung bases to the pubic symphysis. Coronal and sagittal reformats were performed. For radiation dose reduction, the following was used: automated exposure control, adjustment of mA and/or kV according to patient size. COMPARISON: None. FINDINGS: Image quality: Diagnostic. Lower Chest: No significant findings. ABDOMEN: Liver: No solid mass. Gallbladder: No radiopaque gallstones or wall thickening. Biliary ducts: No biliary dilation. Pancreas: No ductal dilation. Spleen: Spleen is enlarged, measuring up to 14.5 cm in anterior-posterior dimension. Adrenal Glands: No adrenal nodules. Kidneys and Ureters: No hydronephrosis. No solid mass. No complex renal cystic lesion which requires follow up. Subcentimeter hypoattenuating lesion in the left kidney is most likely a benign cyst. Stomach and Bowel: Appendix is dilated, measuring up to 9 mm in diameter. No pericholecystic inflammatory changes are seen. No appendicolith. Colon is under distended. Small bowel loops and stomach are unremarkable. Peritoneum: No abnormal intraperitoneal fluid. No free air. Ventral Wall: No significant ventral hernia. Abdominal Nodes: No retroperitoneal or mesenteric adenopathy by size criteria. Vessels: Aorta and inferior vena cava are normal in size. PELVIS: Pelvic Organs: Unremarkable. Bladder: No bladder wall thickening, accounting for underdistention. Pelvic Nodes: No enlarged lymph nodes. Miscellaneous: No inguinal hernias are seen. Bones: No aggressive osseous abnormality. IMPRESSION: 1. Diffusely dilated appendix without appendicolith or surrounding inflammatory changes. Findings are favored to be chronic although mild or early acute appendicitis cannot be entirely excluded. Recommend correlation with clinical findings. 2. Splenomegaly. 3. No renal or ureteral calculus or hydronephrosis. Approved by: Satinder Taylor M.D. on 09/18/2023 at 22:09 ECG Data Attestation: I personally reviewed and interpreted this ECG as follows: Interpretation: Normal sinus rhythm rate 119 OH interval 120 QRS 76 QTC 447 Q-wave noted in lead 3 only no ischemic changes MDM Narrative Medical decision making narrative: MDM CC: Painless jaundice Complicating co-morbidities: Morbid obesity Medical records reviewed: Prior ED visit on 09/18/2023, found to have WBC of 21 bilirubin of 5.[address] normal abdominal CT. Complaints at that time with fatigue, blood in urine with yellowing eyes Differential considered: Primary sclerosing cholangitis, ascending cholangitis, hemolysis, cholelithiasis cholecystitis, cirrhosis, Toxicology Exam documented above, pertinent findings include: Abdomen is soft nontender she does have jaundice and icterus in her eyes no tremors Lab Test results independently reviewed as above. Pertinent findings: Leukocytosis has increased to 27.6 today previously 21.3 Anemia hemoglobin 8.0 hematocrit 22.6 previously 11.4/31.4 platelets 512 Bilirubin 9.9 previously 5.5 AST 56 previously 37 ALT 37 previously 35 Alk-phos 60 Lipase 62 INR 1.3 PT 15.1 Lactate 1.3 BMP: Sodium 139, potassium 3.9, chloride 107, bicarb 20, BUN 13, creatinine 0.7, glucose 107 Drug screen positive for marijuana only, salicylates negative, Tylenol negative, alcohol negative Hepatitis panel pending Blood cultures pending Imaging studies independently reviewed: Abdominal ultrasound and abdominal CT from previous visit have pulse and reviewed she has a normal common bile duct no cholelithiasis or acute cholecystitis no other masses or abnormalities EKG: Has been reviewed by myself no ischemic changes sinus tachycardia Consultations: Garcia, surgery at [facility], updated patient's symptoms test results agrees patient needs further evaluation but no emergent surgery Dr. Shah, hospitalist updated patient's symptoms test results agrees to transfer patient and accept Treatments: Toradol IV fluids Zosyn, morphine Re-evaluations: Patient has been ambulatory in the ED abdomen remained soft nontender she has no symptoms Discussion: Patient is a 22-year-old obese female presenting today with painless jaundice. She is also found to be anemic today possibly hemolysis with new onset of anemia versus a primary biliary sclerosis. She has an increasing white count from 21-27 without fever without pain and a normal lactate, I think less likely to be an ascending cholangitis. There is concern for infection she is given dose of Zosyn, and IV fluids. However no concern for sepsis. She was also having a slight headache she was given Toradol and morphine. There is concern that patient may need an ERCP or GI evaluation. She likely needs a higher level of care. Critical Care Time Critical Care Time Critical Care Time: Yes Total Critical Care Time: 45 Attestation: The high probability of a clinically significant, sudden or life threatening deterioration of the [cardiovascular] system(s) required my full and direct attention, intervention and personal management. The aggregate critical care time was [45] minutes. This time is in addition to time spent performing reported procedures but includes the following: [x] Data Review and interpretation [x] Patient assessment and monitoring of vital signs [x] Documentation [x] Medication orders and management Discharge Plan Departure Patient Disposition: [facility] Clinical Impression: Elevated liver enzymes, Anemia Prescriptions: No Action tramadol 50 mg tablet 50 mg PO Q8H PRN (Reason: pain) Qty: 10 0RF tramadol 50 mg tablet 50 mg PO Q8H PRN (Reason: pain) Qty: 10 0RF Referrals: Miscellaneous,Doctor, [Primary Care Provider] - Stand Alone Forms: Patient Portal/API
[2023-09-21 19:00] LABS: COVID19 -Nasal RAPID Negative (Negative)
[2023-09-21 19:05] LABS: Neutrophils Absolute Manual 20700 /uL (3000-5900); Nucleated Red Blood Cells 7 #/Diff; Total Cells Counted 100
[2023-09-21 19:06] LABS: Anisocytosis 1+
[2023-09-21 19:08] LABS: Macrocytosis 1+
[2023-09-21] MEDS: SODIUM CHLORIDE 0.9% 1,000 ML 1000 ML IV (19:11)
[2023-09-21] MEDS: PIPERACILLIN/TAZO 4.5 GM in SODIUM CHLORIDE 0.9% 100 ML IV (19:12)
--- NOTE | 2023-09-21 19:25 | CM.SWNOTE ---
ED SUPERINTENDENT GENERAL Note: SUPERINTENDENT GENERAL was consulted to assist with connecting pt with primary care provider, no provider established at this time. Pt has Medicaid insurance. SUPERINTENDENT GENERAL entered room, introduced self and role. Pt confirmed she is in the process of establishing a PCP and is hopeful for anyone who is accepting pts with her insurance. Pt provided with [facility] provider list and to expect this SUPERINTENDENT GENERAL to call her tomorrow morning when appointment lines are open. Plan: Pt to discharge with partner to transport, ED SUPERINTENDENT GENERAL will follow up tomorrow, 09/21 to assist with establishing with PCP. JANIS Ambrose
[2023-09-21] MEDS: KETOROLAC 30 MG/ML VIAL 15 MG IV (21:41)
[2023-09-22] VITALS (16 sets, daily range): BP systolic 125–196; BP diastolic 56–93; PULSE 90–124; O2SAT 96–100
[2023-09-22] MEDS: SODIUM CHLORIDE 0.9% 1,000 ML 125 ML IV (01:05)
[2023-09-22] MEDS: MORPHINE 2 MG/ML INJ IV (01:12)
[2023-09-22 01:37] LABS: UR Morphine/Opiate cutoff 300 Negative (Negative); Urine Amphetamines Negative (Negative); Urine Barbiturates Negative (Negative); Urine Benzodiazepines Negative (Negative); Urine Cocaine Negative (Negative); Urine MDMA Negative (Negative); Urine Methadone Negative (Negative); Urine Methamphetamines Negative (Negative); Urine Oxycodone Negative (Negative); Urine Phencyclidine Negative (Negative); Urine Tetrahydrocannabinol Positive (Negative); Urine Tricyclic Antidepressant Negative (Negative); Urine Volume 10mL (spun)
[2023-09-22 01:38] LABS: Bacteria Urine Moderate (10-30); Culture Indicated Urine Cult Not Indicated; RBC Urine 5-10/HPF (0-5/HPF); Squamous Epithelial Cell Urine 5-10 /HPF (0-5/HPF); WBC Urine 1-5/HPF (0-5/HPF)
--- NOTE | 2023-09-22 01:57 | PC.NURSE ---
Addendum entered by Jacque Monteiro CNA 09/22/23 03:08: Spoke with the hospitalist at [address] Shah accepted the patient at [facility] for transfer. SANTIAGO Elham and Dr. Serra notified. Original Note: Pt needs to be transferred for higher level of care. I called the following [facility] -> I spoke with Misa at 2016 and said that they do have bed availability but need to consult with Dr. Cesar first. I tried contacting this provider 12 times with no answer and with leaving voicemails as well. [facility]aces[facility] and imaging were pushed at 2023. [facility] -> I spoke with Ranjana at 2029 and she said that they are unable to accept patients at this time due to being on divert for specific procedures. [facility] -> I spoke with Arnoldo at 2049 and said that they are unable to accept patients at this time due to their waitlist being a 3+ day wait. [facility] -> I spoke with Patt at 2099 and said that they most likely won't have a bed available tonight but possibly in the AM. [facility]aces[facility] and imaging were pushed at 2118. [facility] -> I spoke with Ewelina at 0110 and said that they do have bed availability but need to consult with Acute Care Surgery and hospitalist first. The acute care surgeon said that the pt doesn't need acute surgery at this time but will accept the consult and to go ahead and page their hospitalist. The hospitalist was paged at 0150 and waiting for a call back.
[2023-09-22 23:35] LABS: HBsAg Screen Negative (Negative); Hepatitis A Antibody IgM Negative (Negative); Hepatitis B Core Antibody IgM Negative (Negative); Hepatitis C Antibody Non Reactive (Non Reactive)
== END 2023-09-22 03:35 | disposition short-term general hospital (02) ==
PROVIDERS: Emergency Medicine; Emergency Provider Emergency Medicine
DX: R74.8 Abnormal levels of other serum enzymes (principal); D64.9 Anemia, unspecified; R31.9 Hematuria, unspecified
CPT/HCPCS: 36415; 76705; 80053; 80074; 80305; 80320; 80329; 81003; 81015; 81025; 83605; 83690; 85007; 85025; 85610; 86318; 87040; 87086; 87635; 93005; 96361; 96365; 96375; 99284; G0480; J1885; J2270; J2543

== ENCOUNTER 2023-10-03 21:27 | Observation (INO) | payer OTHER, MEDICAID, SELFPAY ==
[2023-10-03 21:36] VITALS: BP 139/77; PULSE 110; RESP 18; TEMP 36.7; O2SAT 98; BMI 46.0
--- NOTE | 2023-10-03 21:48 | DI.RAD.S_ITS ---
PROCEDURE: XR CHEST 2V INDICATIONS: chest pain TECHNIQUE: 2 views of the chest were acquired. COMPARISON: None. FINDINGS: Surgical changes and devices: None. Lungs and pleura: Lungs are clear. No pleural effusions or pneumothorax. Mediastinum: Mediastinal contours are normal. Heart size is normal. Bones and chest wall: No suspicious bony abnormalities. Soft tissues appear unremarkable. IMPRESSION: No acute cardiopulmonary abnormality is seen. Dictated by: Christopher Flaherty M.D. on 10/03/2023 at 22:12 Approved by: Christopher Flaherty M.D. on 10/03/2023 at 22:12
[2023-10-03 22:55] LABS: Mean Corpuscular HGB Conc 32.8 % (30-36); Mean Corpuscular Hemoglobin 38.3 PG (26-34); Mean Corpuscular Volume 116.7 fL (80-100); Platelet Count 355 X10^3/uL (150-400); Red Blood Cell Count 1.59 X10^6/uL (4.0-5.2); Red Cell Distribution Width 32.8 % (11.6-14.8)
[2023-10-03 23:02] LABS: Add Manual Diff / Slide Review YES
[2023-10-03 23:03] LABS: Prothrombin Time 11.4 SECONDS (9.4-12.5)
[2023-10-03 23:06] LABS: PTT Partial Thromboplastin Tim 24 SECONDS (25.1-36.5)
[2023-10-03 23:10] LABS: Hematocrit 18.5 % (36-46); Hemoglobin 6.1 g/dL (12.0-16.0); White Blood Cell Count 43.2 X10^3/uL (4.5-11.0)
[2023-10-03 23:12] LABS: Neutrophils Absolute Manual 30240 /uL (3000-5900); Nucleated Red Blood Cells 46 #/Diff; Total Cells Counted 100
[2023-10-03 23:13] LABS: Anisocytosis 4+
[2023-10-03 23:14] LABS: Polychromasia 2+
[2023-10-03 23:15] LABS: Macrocytosis 3+
[2023-10-03 23:20] LABS: Lactate (Lactic Acid) 2.1 mmol/L (0.7-2.1)
[2023-10-03 23:21] LABS: Alanine Aminotransferase 88 IU/L (<35); Albumin 4.4 g/dL (3.5-5.0); Albumin Globulin Ratio 1.6 (1.0-2.8); Alkaline Phosphatase 51 U/L (38-126); Aspartate Aminotransferase 177 IU/L (14-36); BUN Creatinine Ratio 34.4 (6-22); Bilirubin Total 4.8 mg/dL (0.2-1.3); Blood Urea Nitrogen 21 mg/dL (7-17); Calcium 9.1 mg/dL (8.4-10.2); Carbon Dioxide 25 mmol/L (22-32); Chloride 105 mmol/L (98-107); Creatine Kinase 53 U/L (30-135); Estimated Glomerular Filt Rate > 60 mL/min (>60); Globulin 2.7 g/dL (1.7-4.1); Glucose 132 mg/dL (70-100); HEMOLYSIS < 15 (0-50); Lipase 81 U/L (23-300); Magnesium 2.3 mg/dL (1.6-2.3); NT-proBNP (BNP-Adult 18+) 31 pg/mL (<125); Potassium 4.7 mmol/L (3.4-5.1); Sodium 136 mmol/L (137-145); Total Protein 7.1 g/dL (6.3-8.2); Troponin I 0.014 ng/mL (0.01-0.034)
[2023-10-03 23:30] LABS: Amorphous Sediment Urine 1+; Bacteria Urine Many (>30); Culture Indicated Urine Specimen Cultured; Mucus Urine 1+ (Negative); RBC Urine 0-1/HPF (0-5/HPF); Squamous Epithelial Cell Urine 0-1 /HPF (0-5/HPF); Urine Volume 10mL (spun); WBC Urine 1-5/HPF (0-5/HPF)
--- NOTE | 2023-10-03 23:32 | EKG_ITS ---
[facility] [address], [place] [address] Test Date: 2023-10-03 Pat Name: Litzy An Department: [facility] Room: Gender: Female Master Scheduler: ELGIN : 2000 Requested By: Order Number: [id number] Reading MD: Charlie Dave MD Measurements Intervals [place] Rate: 100 P: 47 AK: 112 QRS: 44 QRSD: 84 T: 29 QT: 340 QTc: 438 Interpretive Statements Normal sinus rhythm Electronically Signed On 10-04-2023 7:47:51 PDT by Charlie Dave MD
--- NOTE | 2023-10-03 23:54 | ED.GENADULT ---
HPI - General Adult General Chief complaint: Shortness of Breath/Dyspnea Stated complaint: Hemolytic Anemia symptoms returned Time Seen by Provider: 10/03/23 23:25 Source: patient, RN notes reviewed and old records reviewed Mode of arrival: Family Vehicle Limitations: no limitations History of Present Illness HPI narrative: 22-year-old female with recent direct Tu positive hemolytic anemia, hyperbilirubinemia with jaundice due to hemolysis requiring transfusion pulmonary nodules who presented with complaint of increasing shortness of breath lightheadedness and pallor as well as worsening of her jaundice. Patient states no fevers. No syncope but has felt lightheaded, she has had shortness of breath with exertion. States little bit of chest discomfort with those episodes. No nausea or vomiting, no diarrhea constipation reported. She states her hematuria seemed to get better but then has recurred. Patient denies any dysuria urgency or frequency. She denies any swelling of her extremities. Patient was seen here on September 19 and transferred to [facility], she had evaluation and found to have hemolytic anemia she states she did have blood transfusions there, was found to have splenomegaly and dilated appendix without surrounding inflammatory changes. Patient was initiated on Solu-Medrol transition to prednisone 150 mg daily to be tapered and Rituxan could be added at 2 weeks. Patient notes she is taking folic acid, prednisone, omeprazole and acetaminophen PRN. Patient is to follow up with Dr. Alarcon with Hematology Oncology through [facility]. Patient states no issues in the past, was on Zoloft recently at 1 point but no other daily prescription medications before her hospitalization. No prior surgeries. No known drug allergies, she does use tobacco, she vapes and uses marijuana, occasional alcohol, no IV drugs. Related Data Home Medications Medication Instructions Recorded Confirmed No Known Home Medications 10/04/23 10/04/23 Allergies Allergy/AdvReac Type Severity Reaction Status Date / Time No Known Drug Allergies Allergy Verified 09/18/23 18:44 Review of Systems Review of Systems ROS Unobtainable: All systems reviewed & are unremarkable except as noted in HPI and below Patient History Social History household members: significant other Smoking Status: Current every day smoker Smoking Status: Current every day smoker tobacco type: vaping alcohol intake frequency: a few times a month Substance Use Type: marijuana Exam Narrative Exam Narrative: GENERAL: Alert and oriented x three, obese female in mild distress. Patient appears pale HEENT: Head normocephalic, atraumatic, EOMI, pupils reactive, face symmetric, moist mucous membranes NECK: Supple, full range of motion CARDIOVASCULAR: Patient is slightly tachycardic but regular rate and rhythm without murmurs, rubs or gallops. No edema bilateral lower extremities. RESPIRATORY: Breath sounds equal bilaterally, no wheezes rales or rhonchi. No tachypnea or accessory muscle use. ABDOMEN: Soft, nontender. Normoactive bowel sounds all 4 quadrants. No guarding or rebound, rigidity, no mass : No CVA tenderness EXTREMITIES: Normal range of motion, no clubbing or edema. Neurovascularly intact NEUROLOGICAL: Cranial nerves II through XII grossly intact. Moving all extremities SKIN: Warm, dry, no petechiae, no rashes or lesions. Initial Vital Signs Initial Vital Signs: Vital Signs Temperature 98.0 F 10/03/23 21:36 Pulse Rate 110 H 10/03/23 21:36 Respiratory Rate 18 10/03/23 21:36 Blood Pressure 139/77 10/03/23 21:36 Pulse Oximetry 98 10/03/23 21:36 Oxygen Delivery Method Room Air 10/03/23 21:36 Course Orders Ordered: ED Orders 10/03/23 21:48 XR chest 2V Stat EKG-12 Lead Stat 10/03/23 22:37 Complete Blood Count AUTO DIFF Stat Comprehensive Metabolic Panel Stat Lactate (Lactic Acid) Stat Lipase Stat Magnesium Stat NT-proBNP (BNP-Adult 18+) Stat PTT Partial Thromboplastin Satya Stat Pathologist Review (for CBC) Stat Prothrombin Time INR Stat Troponin & CK Cardiac Panel Stat Urine Culture Stat Urine Microscopic Stat 10/03/23 23:28 PRBC [Packed Cells] Stat Type and Screen Stat Acetaminophen (Acetaminophen 325 Mg Tablet) 650 mg PO Q6H PRN PRN Reason: Fever/Mild Pain (1-3) Sodium Chloride (Normal Saline 0.9%) 1,000 mls @ 125 mls/hr IV CONT LEXIE Last Admin: 10/04/23 00:51 Dose: 125 mls/hr Documented By: Magnesium Hydroxide (Magnesium Hydroxide 30 Ml Udc) 30 ml PO DAILY PRN PRN Reason: Constipation Naloxone HCl (Naloxone 0.4 Mg/Ml Vial) 0.2 mg IV Q2MIN PRN PRN Reason: Opiate Reversal Ondansetron HCl (Ondansetron 4 Mg/2 Ml Inj) 4 mg IV Q8HR PRN PRN Reason: Nausea And Vomiting Vital Signs Vital signs: Vital Signs - 8 hr 10/04/23 00:14 10/04/23 00:34 Pulse Rate 102 H 97 H Respiratory Rate 18 23 Blood Pressure 107/57 L Pulse Oximetry 97 97 Oxygen Delivery Method Room Air Medical Decision Making Lab Data 10/03/23 22:37 10/03/23 22:37 Labs: Lab Results 10/03/23 10/03/23 10/04/23 Range/Units 22:37 23:28 00:35 WBC 43.2 H* (4.5-11.0) X10^3/uL RBC 1.59 L (4.0-5.2) X10^6/uL Hgb 6.1 L* (12.0-16.0) g/dL Hct 18.5 L* (36-46) % MCV 116.7 H (80-100) fL MCH 38.3 H (26-34) PG MCHC 32.8 (30-36) % RDW 32.8 H (11.6-14.8) % Plt Count 355 (150-400) X10^3/uL Neut % (Auto) Not Reportable Lymph % (Auto) Not Reportable [place] % (Auto) Not Reportable Eos % (Auto) Not Reportable Baso % (Auto) Not Reportable Lymph # (Auto) Not Reportable [place] # (Auto) Not Reportable Baso # (Auto) Not Reportable Total Counted 100 Seg Neutrophils % 68.0 (38-70) % Band Neutrophils % 2.0 L (3-7) % Lymphocytes % (Manual) 24.0 L (25-45) % Monocytes % (Manual) 3.0 (2-11) % Metamyelocytes % 3.0 H (-0) % Neutrophils # (Manual) 68358 H (0696-1747) /uL Nucleated RBCs 46 H ( - 0) #/Diff RBC Morphology See below Polychromasia 2+ H Anisocytosis 4+ H Macrocytosis 3+ H PT 11.4 (9.4-12.5) SECONDS INR 1.0 (0.9-1.3) APTT 24 L (25.1-36.5) SECONDS Sodium 136 L (137-145) mmol/L Potassium 4.7 (3.4-5.1) mmol/L Chloride 105 (98-107) mmol/L Carbon Dioxide 25 (22-32) mmol/L BUN 21 H (7-17) mg/dL Creatinine 0.61 (0.52-1.04) mg/dL Estimated GFR > 60 (>60) mL/min BUN/Creatinine Ratio 34.4 H (6-22) Glucose 132 H (70-100) mg/dL Lactate 2.1 2.2 H (0.7-2.1) mmol/L Calcium 9.1 (8.4-10.2) mg/dL Magnesium 2.3 (1.6-2.3) mg/dL Total Bilirubin 4.8 H (0.2-1.3) mg/dL AST 177 H (14-36) IU/L ALT 88 H (<35) IU/L Alkaline Phosphatase 51 (38-126) U/L Total Creatine Kinase 53 (30-135) U/L Troponin I 0.014 (0.01-0.034) ng/mL NT-Pro-B Natriuret Pep 31 (<125) pg/mL Total Protein 7.1 (6.3-8.2) g/dL Albumin 4.4 (3.5-5.0) g/dL Globulin 2.7 (1.7-4.1) g/dL Albumin/Globulin Ratio 1.6 (1.0-2.8) Lipase 81 (23-300) U/L Urine RBC 0-1/hpf (0-5/HPF) Urine WBC 1-5/hpf (0-5/HPF) Ur Squamous Epith Cells 0-1 /hpf (0-5/HPF) Amorphous Sediment 1+ Urine Bacteria Many (>30) H (None) Urine Mucus 1+ H (Negative) Ur Culture Indicated? Specimen cultured Vol Urine Centrifuged 10ml (spun) Blood Type A Positive Antibody Screen Positive Crossmatch See Detail Point of Care Testing Test Results Negative Urine Dip Bedside Urine Glucose Negative Bedside Urine Bilirubin - Negative Bedside Urine Ketone - Negative Urine Specific [place] 1.025 Bedside Urine Occult Blood +++ Bedside Urine pH 5.5 Bedside Urine Protein ++ 100 Bedside Urine Urobilinogen +/- 1mg Bedside Urine Nitrite + Positive Bedside Urine Leukocytes +/- 15 Esterase Point of care testing: Point of Care Testing Test Results Negative Urine Dip Bedside Urine Glucose Negative Bedside Urine Bilirubin - Negative Bedside Urine Ketone - Negative Urine Specific [place] 1.025 Bedside Urine Occult Blood +++ Bedside Urine pH 5.5 Bedside Urine Protein ++ 100 Bedside Urine Urobilinogen +/- 1mg Bedside Urine Nitrite + Positive Bedside Urine Leukocytes +/- 15 Esterase Imaging Data Chest x-ray: Radiologist's Impression: Litzy An??22??F??2000 ? Allergy/Adv: No Known Drug Allergies Close Chest X-Ray (Signed) Christopher Flaherty - 10/03/23 Abdomen Ultrasound (Signed) Satinder Taylor - 09/21/23 Abdomen/Pelvis CT (Signed) Satinder Taylor - 09/18/23 Hip X-Ray (Signed) Sarath Valencia - 05/18/23 Pelvis Ultrasound (Signed) Sarath Valencia - 04/30/23 [address]?[place] [id number] XRay Report Signed Patient: Litzy An MR#: [id number] : 2000 Acct:[id number] Age/Sex: 22 / F Date of Service: 10/03/23 Loc: ED Accession Number: [id number] Procedure: XR chest 2V Ordering Provider: Tejal Romero D.O. PROCEDURE: XR CHEST 2V INDICATIONS: chest pain TECHNIQUE: 2 views of the chest were acquired. COMPARISON: None. FINDINGS: Surgical changes and devices: None. Lungs and pleura: Lungs are clear. No pleural effusions or pneumothorax. Mediastinum: Mediastinal contours are normal. Heart size is normal. Bones and chest wall: No suspicious bony abnormalities. Soft tissues appear unremarkable. IMPRESSION: No acute cardiopulmonary abnormality is seen. Dictated by: Christopher Flaherty M.D. on 10/03/2023 at 22:12 Approved by: Christopher Flaherty M.D. on 10/03/2023 at 22:12 ECG Data Attestation: I personally reviewed and interpreted this ECG as follows: Interpretation: Sinus rhythm rate of 100 OK 112 QRS 84 QTC 438, Q-wave in lead [address] changes appreciated. MDM Narrative Medical decision making narrative: Patient's labs show a white count of 43 significantly elevated from September 20 when she was 27 hemoglobin today is 6.1 she would hemoglobin of 8 on the she states she was not as low as 6.1 during her hospitalization she has a macrocytosis which appears new, platelets are 355. Neutrophils are 30,240. 3% metamyelocytes. INR is 1, sodium is 136 potassium is 4 7 chloride 105 CO2 is 25 with a BUN 21 creatinine 0.6 glucose is 132 lactate 2.1 with a calcium of 9.1 Mag 2.3, bilirubin is 4.8 has not improved from 9.9 on the AST is 177 with a ALT 88 and alk-phos of 51, lipase is negative Chest x-ray shows no acute change Patient was type and screen 1 unit packed red blood cells was ordered. Consultation with heme/Onc through [facility] patient is supposed to be following with Dr. Alarcon. Spoke with Dr. Alarcon he is with the patient, he notes goal of 7 for patient's hemoglobin but states we can give 2 units total, would have her continue prednisone 1 sylvia per kg for 150 mg prednisone daily. If patient is maintaining her hemoglobin after transfusion can be discharged home to follow up with them they maybe starting Rituxan after this med she has outpatient labs ordered for later this week. He does note that the lab may have to give least incompatible blood because of her comes positive antibody. Does not feel that she needs transfer. Spoke with Dr. Nelson, hospitalist accepts for observation. Discussed recommendations from Dr. Alarcon Hem/Onc with [facility]. Spoke with the lab, there where we will take some time to get blood but plan for 2 units at this time. Critical Care Time Critical Care Time Critical Care Time: Yes Total Critical Care Time: 35 Attestation: The high probability of a clinically significant, sudden or life threatening deterioration of the cardiac, pulmonary system(s) required my full and direct attention, intervention and personal management. The aggregate critical care time was [--] minutes. This time is in addition to time spent performing reported procedures but includes the following: [x] Data Review and interpretation [x] Patient assessment and monitoring of vital signs [x] Documentation [x] Medication orders and management Discharge Plan Departure Patient Disposition: Admitted as Observation Clinical Impression: Hemolytic anemia, Symptomatic anemia Admit Date/Time: 10/04/23 00:35 Admit Provider: Gabe Nelson
[2023-10-04] VITALS (13 sets, daily range): BP systolic 107–148; BP diastolic 57–90; PULSE 95–113; RESP 14–24; TEMP 35.8–36.9; O2SAT 96–99; BMI 46.0
[2023-10-04 00:20] LABS: Reflexed Lactate in 2 Hours Y
[2023-10-04] MEDS: SODIUM CHLORIDE 0.9% 1,000 ML 125 ML IV (00:51)
[2023-10-04 01:10] LABS: Lactate 2HR (Lactic Acid Rflx) 2.2 mmol/L (0.7-2.1)
[2023-10-04 02:48] LABS: Lactate (Lactic Acid) 1.9 mmol/L (0.7-2.1)
--- NOTE | 2023-10-04 05:55 | PM.HP.1 ---
History of Present Illness History of Present Illness Date Patient Seen: 10/04/23 Time Patient Seen: 01:20 Chief complaint: Hemolytic Anemia symptoms returned Narrative: 22 years old female with recent diagnosis of Tu positive hemolytic anemia, hyperbilirubinemia, recent hospitalization requiring blood transfusion and other medical issues presented to the emergency room for progressive weakness, shortness of breath with minimal exertion increasing pallor and worsening jaundice. Denies any fever episodes cough wheezing headache or upper respiratory symptoms. Does have chest tightness with exertion. Denies any abdominal pain nausea or vomiting. No blood in the urine or in the stool. Patient was recently transferred to [facility] and during workup was noted to have significantly. She was treated with IV Solu-Medrol and transition to prednisone 150 mg daily with plans to add Rituxan in 2 weeks. Subsequent workup in the emergency room here showed a hemoglobin of 6.1 with a platelet count of 355 and a WBC of 43.2. Sodium is 136, BUN of 21 creatinine of 0.61, total bilirubin of 4.8, AST of 177 and ALT of 88. BNP is 31. Urinalysis is positive for nitrites and leukocyte esterase. Chest x-ray shows no acute process. Emergency room provider discussed with Dr. menendez with hematology oncology at [facility]. Was advised blood transfusion here at the [facility] for now with a target hemoglobin of 7.0 or above. Patient was admitted for further evaluation [facility] Social History household members: significant other Smoking Status: Current every day smoker Meds Home Medications and Allergies Home Medications Medication Instructions Recorded Confirmed Type No Known Home Medications 10/04/23 10/04/23 History Allergies Allergy/AdvReac Type Severity Reaction Status Date / Time No Known Drug Allergies Allergy Verified 09/18/23 18:44 Review of Systems Review of Systems Narrative: A 12 point review of system is negative unless otherwise stated in the history of present illness Exam Vital Signs (past 8 hours): - 10/04/23 00:14 10/04/23 00:34 10/04/23 00:50 Temperature Pulse Rate 102 H 97 H Respiratory Rate 18 23 Blood Pressure 107/57 L Pulse Oximetry 97 97 Oxygen Delivery Method Room Air Room Air Oxygen Flow Rate 10/04/23 01:00 10/04/23 01:00 10/04/23 01:11 Temperature 98.4 F Pulse Rate 97 H 98 H Respiratory Rate 22 24 18 Blood Pressure 134/63 137/87 Pulse Oximetry 96 97 98 Oxygen Delivery Method Room Air Room Air Oxygen Flow Rate 10/04/23 01:23 Temperature 98.0 F Pulse Rate 103 H Respiratory Rate 18 Blood Pressure 136/74 Pulse Oximetry 97 Oxygen Delivery Method Oxygen Flow Rate 0 Oxygen Delivery Method Room Air Oxygen Flow Rate 0 Narrative Exam Narrative: Patient is awake alert oriented. Following commands. Central system exam is nonfocal Cardiovascular system. S1-S2 heard no S3 no so no murmur Abdomen soft nontender. Extremities no edema Objective Labs 10/03/23 22:37 10/03/23 22:37 Labs: Laboratory Results - last 24 hr 10/03/23 10/03/23 10/04/23 22:37 23:28 00:35 WBC 43.2 H* RBC 1.59 L Hgb 6.1 L* Hct 18.5 L* MCV 116.7 H MCH 38.3 H MCHC 32.8 RDW 32.8 H Plt Count 355 Neut % (Auto) Not Reportable Lymph % (Auto) Not Reportable [place] % (Auto) Not Reportable Eos % (Auto) Not Reportable Baso % (Auto) Not Reportable Lymph # (Auto) Not Reportable [place] # (Auto) Not Reportable Baso # (Auto) Not Reportable Total Counted 100 Seg Neutrophils % 68.0 Band Neutrophils % 2.0 L Lymphocytes % (Manual) 24.0 L Monocytes % (Manual) 3.0 Metamyelocytes % 3.0 H Neutrophils # (Manual) 77957 H Nucleated RBCs 46 H RBC Morphology See below Polychromasia 2+ H Anisocytosis 4+ H Macrocytosis 3+ H PT 11.4 INR 1.0 APTT 24 L Sodium 136 L Potassium 4.7 Chloride 105 Carbon Dioxide 25 BUN 21 H Creatinine 0.61 Estimated GFR > 60 BUN/Creatinine Ratio 34.4 H Glucose 132 H Lactate 2.1 2.2 H Calcium 9.1 Magnesium 2.3 Total Bilirubin 4.8 H AST 177 H ALT 88 H Alkaline Phosphatase 51 Total Creatine Kinase 53 Troponin I 0.014 NT-Pro-B Natriuret Pep 31 Total Protein 7.1 Albumin 4.4 Globulin 2.7 Albumin/Globulin Ratio 1.6 Lipase 81 Urine RBC 0-1/hpf Urine WBC 1-5/hpf Ur Squamous Epith Cells 0-1 /hpf Amorphous Sediment 1+ Urine Bacteria Many (>30) H Urine Mucus 1+ H Ur Culture Indicated? Specimen cultured Vol Urine Centrifuged 10ml (spun) Blood Type A Positive Antibody Screen Positive Crossmatch See Detail 10/04/23 02:27 WBC RBC Hgb Hct MCV MCH MCHC RDW Plt Count Neut % (Auto) Lymph % (Auto) [place] % (Auto) Eos % (Auto) Baso % (Auto) Lymph # (Auto) [place] # (Auto) Baso # (Auto) Total Counted Seg Neutrophils % Band Neutrophils % Lymphocytes % (Manual) Monocytes % (Manual) Metamyelocytes % Neutrophils # (Manual) Nucleated RBCs RBC Morphology Polychromasia Anisocytosis Macrocytosis PT INR APTT Sodium Potassium Chloride Carbon Dioxide BUN Creatinine Estimated GFR BUN/Creatinine Ratio Glucose Lactate 1.9 Calcium Magnesium Total Bilirubin AST ALT Alkaline Phosphatase Total Creatine Kinase Troponin I NT-Pro-B Natriuret Pep Total Protein Albumin Globulin Albumin/Globulin Ratio Lipase Urine RBC Urine WBC Ur Squamous Epith Cells Amorphous Sediment Urine Bacteria Urine Mucus Ur Culture Indicated? Vol Urine Centrifuged Blood Type Antibody Screen Crossmatch Assessment & Plan Assessment & Plan narrative: 22 years old female with recent diagnosis of Tu positive hemolytic anemia, hyperbilirubinemia, recent hospitalization requiring blood transfusion and other medical issues presented to the emergency room for progressive weakness, shortness of breath with minimal exertion increasing pallor and worsening jaundice. Denies any fever episodes cough wheezing headache or upper respiratory symptoms. Does have chest tightness with exertion. Denies any abdominal pain nausea or vomiting. No blood in the urine or in the stool. Patient was recently transferred to [facility] and during workup was noted to have significantly. She was treated with IV Solu-Medrol and transition to prednisone 150 mg daily with plans to add Rituxan in 2 weeks. Subsequent workup in the emergency room here showed a hemoglobin of 6.1 with a platelet count of 355 and a WBC of 43.2. Sodium is 136, BUN of 21 creatinine of 0.61, total bilirubin of 4.8, AST of 177 and ALT of 88. BNP is 31. Urinalysis is positive for nitrites and leukocyte esterase. Chest x-ray shows no acute process. Emergency room provider discussed with Dr. menendez with hematology oncology at [facility]. Was advised blood transfusion here at the [facility] for now with a target hemoglobin of 7.0 or above. Patient was admitted for further evaluation 1 anemia the patient with a history of recent Tu positive hemolytic anemia/hyperbilirubinemia and jaundice. Currently on high-dose prednisone which may be resumed. Transfuse 2 units of PRBC as recommended by hematology and trend the hemoglobin closely to keep the target at 7.0 or above 2 leukocytosis. Suspect due to high-dose prednisone. UA is positive for leukocyte esterase. Send the cultures and treat the underlying possible UTI but suspect the high white count is due to the steroids then any infection. Will monitor closely 3 urinary tract infection nonspecific. Initiate oral Keflex pending culture results. Add probiotics 4 GERD/GI prophylaxis initiate Protonix 5 DVT prophylaxis will be with SCDs and ambulation Patient will be admitted under observation status Time-Based Coding :: [TOTAL MINUTES] spent with patient and on the chart (including review of chart, obtaining history, exam, reviewing outside data, placing orders, documenting exam and treatment plan, and counseling patient) on [DATE].
[2023-10-04 08:29] LABS: Add Manual Diff / Slide Review NO; Basophils Absolute Auto 400 /uL (0-100); Basophils Percent Auto 1.2 % (0-2); Eosinophils Absolute Auto 100 /uL (0-450); Eosinophils Percent Auto 0.2 % (2-4); Lymphocytes Absolute Auto 9600 /uL (1100-4500); Lymphocytes Percent Auto 27.8 % (25-40); Mean Corpuscular HGB Conc 32.8 % (30-36); Mean Corpuscular Hemoglobin 38.8 PG (26-34); Mean Corpuscular Volume 118.4 fL (80-100); Monocytes Absolute Auto 1800 /uL (0-900); Monocytes Percent Auto 5.3 % (3-14); Neutrophils Absolute Auto 22500 /uL (1500-7000); Neutrophils Percent Auto 65.5 % (50-75); Platelet Count 321 X10^3/uL (150-400); Red Blood Cell Count 1.53 X10^6/uL (4.0-5.2); Red Cell Distribution Width 33.7 % (11.6-14.8)
[2023-10-04 08:33] LABS: Hematocrit 18.1 % (36-46); Hemoglobin 5.9 g/dL (12.0-16.0)
[2023-10-04 08:34] LABS: White Blood Cell Count 34.3 X10^3/uL (4.5-11.0)
[2023-10-04 08:45] LABS: Anisocytosis 3+
[2023-10-04 08:55] LABS: Alanine Aminotransferase 78 IU/L (<35); Albumin Globulin Ratio 1.5 (1.0-2.8); Alkaline Phosphatase 46 U/L (38-126); Aspartate Aminotransferase 135 IU/L (14-36); BUN Creatinine Ratio 33.9 (6-22); Bilirubin Total 4.6 mg/dL (0.2-1.3); Blood Urea Nitrogen 21 mg/dL (7-17); Calcium 8.8 mg/dL (8.4-10.2); Carbon Dioxide 28 mmol/L (22-32); Chloride 105 mmol/L (98-107); Estimated Glomerular Filt Rate > 60 mL/min (>60); Globulin 2.6 g/dL (1.7-4.1); Glucose 97 mg/dL (70-100); HEMOLYSIS < 15 (0-50); Sodium 138 mmol/L (137-145); Total Protein 6.6 g/dL (6.3-8.2)
[2023-10-04] MEDS: LACTOBACILLUS ACIDOPHILUS TABLET 1 EACH PO ×2 (08:56→18:14)
[2023-10-04] MEDS: cephALEXin 250 MG CAPSULE 500 MG PO ×2 (08:58→20:44)
[2023-10-04] MEDS: ACETAMINOPHEN 325 MG TABLET 650 MG PO ×2 (08:59→18:14)
--- NOTE | 2023-10-04 12:38 | CM.DANOTE ---
Initial DCP Assessment Note Pt is a 22 yo female, resident of [place], with recent diagnosis of Tu positive hemolytic anemia, hyperbilirubinemia, recent hospitalization requiring blood transfusion with other comorbidities; presents with weakness and SOB, admitted for blood transfusion and further work up. According to Dr Mabry, patient may be a candidate for transfer, depending on how medical plan of care unfolds. PCP: Unknown, list of PCPs provided 09.21.23 Payer: [employer] Reviewed chart, pt discussed in multidisciplinary rounds this morning. Patient with multiple co-morbidities, PLOF unknown at this time. Patient may need transfer. CM team will plan to follow clinical course closely. NIGHAT Peterson Discharge Planning/Care Management CM Discharge Assessment Start: 10/04/23 12:34 Freq: Status: Active Protocol: Document 10/04/23 12:35 IVONNE (Rec: 10/04/23 12:38 IVONNE [id number]) Discharge Planning Assessment Assigned Cryptographic Technician NIGHAT Marks DPOA/Assigned Designee Name Irma RussASAEL Contact Information [phone] Advance Directives? No History Provided By Patient,Medical Record Prior Living Arrangements Apartment/Condo Household Members significant other Type of transporation used prior to Drives own vehicle admit Independent with ADL's Yes Is patient alert and oriented? Yes Comment TBD Transportation Arrangement TBD Referrals Initiated None needed
--- NOTE | 2023-10-04 13:47 | PM.HP.1 ---
History of Present Illness History of Present Illness Date Patient Seen: 10/04/23 Time Patient Seen: 12:00 Chief complaint: Hemolytic Anemia symptoms returned Narrative: Per overnight admittin provider, 22 years old female with recent diagnosis of Tu positive hemolytic anemia, hyperbilirubinemia, recent hospitalization requiring blood transfusion and other medical issues presented to the emergency room for progressive weakness, shortness of breath with minimal exertion increasing pallor and worsening jaundice. Denies any fever episodes cough wheezing headache or upper respiratory symptoms. Does have chest tightness with exertion. Denies any abdominal pain nausea or vomiting. No blood in the urine or in the stool. Patient was recently transferred to [facility] and during workup was noted to have significantly. She was treated with IV Solu-Medrol and transition to prednisone 150 mg daily with plans to add Rituxan in 2 weeks. Subsequent workup in the emergency room here showed a hemoglobin of 6.1 with a platelet count of 355 and a WBC of 43.2. Sodium is 136, BUN of 21 creatinine of 0.61, total bilirubin of 4.8, AST of 177 and ALT of 88. BNP is 31. Urinalysis is positive for nitrites and leukocyte esterase. Chest x-ray shows no acute process. Emergency room provider discussed with Dr. menendez with hematology oncology at [facility]. Was advised blood transfusion here at the [facility] for now with a target hemoglobin of 7.0 or above. Patient was admitted for further evaluation Today, patient reports compliance with prednisone. It took significant time to adequately get patient her blood here. Now infusing. She feels better. Repeat h/h before transfusion was minimally changed at 5.9. Now getting 2U will assess response. Re-ordered home prednisone 150 mg. [facility] Medical History (Updated 10/04/23 @ 16:58 by Teto Mabry DO) AIHA (autoimmune hemolytic anemia) Social History household members: significant other Smoking Status: Current every day smoker Meds Home Medications and Allergies Home Medications Medication Instructions Recorded Confirmed Type folic acid 1 mg tablet 1 mg PO DAILY 10/04/23 10/04/23 History omeprazole 40 mg capsule,delayed 40 mg PO DAILY 10/04/23 10/04/23 History release prednisone 50 mg tablet 150 mg PO DAILY 10/04/23 10/04/23 History Allergies Allergy/AdvReac Type Severity Reaction Status Date / Time No Known Drug Allergies Allergy Verified 09/18/23 18:44 Review of Systems Review of Systems Narrative: All other systems reviewed with the patient and are negative unless otherwise stated. Exam Vital Signs (past 8 hours): - 10/04/23 06:37 10/04/23 08:00 10/04/23 11:51 Temperature 97.8 F 97.4 F L 96.6 F L Pulse Rate 113 H 107 H 101 H Respiratory Rate 18 18 14 Blood Pressure 132/73 148/82 H 144/73 H Pulse Oximetry 98 96 Oxygen Flow Rate 1 0 10/04/23 12:00 10/04/23 12:07 Temperature 97.2 F L 96.5 F L Pulse Rate 105 H 98 H Respiratory Rate 18 15 Blood Pressure 148/64 H 148/80 H Pulse Oximetry 98 Oxygen Flow Rate 0 Oxygen Delivery Method Room Air Oxygen Flow Rate 0 Narrative Exam Narrative: Gen: obese female NAD CV: borderline tachycardia at 100, no m/r/g Pulm: CTA b/l Abd: S NT ND Ext: no edema Objective Labs 10/04/23 08:04 10/04/23 08:04 Labs: Laboratory Results - last 24 hr 10/03/23 10/03/23 10/04/23 22:37 23:28 00:35 WBC 43.2 H* RBC 1.59 L Hgb 6.1 L* Hct 18.5 L* MCV 116.7 H MCH 38.3 H MCHC 32.8 RDW 32.8 H Plt Count 355 Neut % (Auto) Not Reportable Lymph % (Auto) Not Reportable [place] % (Auto) Not Reportable Eos % (Auto) Not Reportable Baso % (Auto) Not Reportable Neut # (Auto) Lymph # (Auto) Not Reportable [place] # (Auto) Not Reportable Eos # (Auto) Baso # (Auto) Not Reportable Total Counted 100 Seg Neutrophils % 68.0 Band Neutrophils % 2.0 L Lymphocytes % (Manual) 24.0 L Monocytes % (Manual) 3.0 Metamyelocytes % 3.0 H Neutrophils # (Manual) 56075 H Nucleated RBCs 46 H RBC Morphology See below Polychromasia 2+ H Anisocytosis 4+ H Macrocytosis 3+ H PT 11.4 INR 1.0 APTT 24 L Sodium 136 L Potassium 4.7 Chloride 105 Carbon Dioxide 25 BUN 21 H Creatinine 0.61 Estimated GFR > 60 BUN/Creatinine Ratio 34.4 H Glucose 132 H Lactate 2.1 2.2 H Calcium 9.1 Magnesium 2.3 Total Bilirubin 4.8 H AST 177 H ALT 88 H Alkaline Phosphatase 51 Total Creatine Kinase 53 Troponin I 0.014 NT-Pro-B Natriuret Pep 31 Total Protein 7.1 Albumin 4.4 Globulin 2.7 Albumin/Globulin Ratio 1.6 Lipase 81 Urine RBC 0-1/hpf Urine WBC 1-5/hpf Ur Squamous Epith Cells 0-1 /hpf Amorphous Sediment 1+ Urine Bacteria Many (>30) H Urine Mucus 1+ H Ur Culture Indicated? Specimen cultured Vol Urine Centrifuged 10ml (spun) Blood Type A Positive Antibody Screen Positive Antibody Identification Warm Auto Antibody Crossmatch See Detail 10/04/23 10/04/23 02:27 08:04 WBC 34.3 H* RBC 1.53 L Hgb 5.9 L* Hct 18.1 L* MCV 118.4 H MCH 38.8 H MCHC 32.8 RDW 33.7 H Plt Count 321 Neut % (Auto) 65.5 Lymph % (Auto) 27.8 [place] % (Auto) 5.3 Eos % (Auto) 0.2 L Baso % (Auto) 1.2 Neut # (Auto) 87966 H Lymph # (Auto) 9600 H [place] # (Auto) 1800 H Eos # (Auto) 100 Baso # (Auto) 400 H Total Counted Seg Neutrophils % Band Neutrophils % Lymphocytes % (Manual) Monocytes % (Manual) Metamyelocytes % Neutrophils # (Manual) Nucleated RBCs RBC Morphology Not Reportable Polychromasia Anisocytosis 3+ H Macrocytosis PT INR APTT Sodium 138 Potassium 4.0 Chloride 105 Carbon Dioxide 28 BUN 21 H Creatinine 0.62 Estimated GFR > 60 BUN/Creatinine Ratio 33.9 H Glucose 97 Lactate 1.9 Calcium 8.8 Magnesium Total Bilirubin 4.6 H AST 135 H ALT 78 H Alkaline Phosphatase 46 Total Creatine Kinase Troponin I NT-Pro-B Natriuret Pep Total Protein 6.6 Albumin 4.0 Globulin 2.6 Albumin/Globulin Ratio 1.5 Lipase Urine RBC Urine WBC Ur Squamous Epith Cells Amorphous Sediment Urine Bacteria Urine Mucus Ur Culture Indicated? Vol Urine Centrifuged Blood Type Antibody Screen Antibody Identification Crossmatch Assessment & Plan Assessment & Plan narrative: 22 years old female with recent diagnosis of Tu positive hemolytic anemia admitted with the same. 1. AIHA (autoimmune hemolytic anemia) - continue prednisone 150 mg, folic acid, pantoprazole. Severe symptomatic anemia on presentation with Hg as low as 5.9. S/p 2 U PRBC which took some time to get here given her hemolytic anemia. - lymphoma evaluation at outside hospital showed no abberant blasts per report. - if not stable after transfusion will reconsult outside hematology to see if rituxan should be given, possible transfer for consultation. If stable can discharge with continued plan for outpatient hematology follow up. - monitor bilirubin - AST/ALT slightly elevated compared to prior admission. 2. Obesity -The patient is at much higher risk for medical and surgical complications because of their obesity. This increases the difficulty and complexity of medical and surgical interventions and increases the chances of poor outcomes such as morbidity and mortality. 3. Leukocytosis - UA with many bacteria but minimal WBC. Will follow up culture, but likely asymptomatic. Given presentation will continue cephalexin for now, pending cultures. 4. Possible acute cystitis or asymptomatic bacteuria - as above with leukocytosis. Code: Full DVT: SCDs given anemia I have utilized all available immediate resources to obtain, update, or review the patient's current medications. Dispo: patient admitted under inpatient status. Likely discharge home with close hematology follow up, possible in a couple of days. Additional history obtained via discussions with the overnight provider, case management staff, blood bank and bedside staff. These discussions contributed to the creation of the above assessment and plan. I have reviewed patient's presenting documentation, labs, and imaging personally. I have reviewed patient's overlake records as well from [facility]. Time-Based Coding :: [TOTAL MINUTES] spent with patient and on the chart (including review of chart, obtaining history, exam, reviewing outside data, placing orders, documenting exam and treatment plan, and counseling patient) on [DATE].
[2023-10-04 20:03] LABS: Hematocrit 24.1 % (36-46); Hemoglobin 8.3 g/dL (12.0-16.0)
[2023-10-05 02:00] VITALS: BP 136/86; PULSE 86; RESP 17; TEMP 37.1; O2SAT 98
[2023-10-05 06:05] LABS: Hematocrit 23.7 % (36-46); Mean Corpuscular HGB Conc 33.8 % (30-36); Mean Corpuscular Hemoglobin 36.4 PG (26-34); Mean Corpuscular Volume 107.8 fL (80-100); Platelet Count 253 X10^3/uL (150-400); Red Cell Distribution Width 28.4 % (11.6-14.8); White Blood Cell Count 23.7 X10^3/uL (4.5-11.0)
[2023-10-05 06:07] LABS: Add Manual Diff / Slide Review YES
[2023-10-05 06:17] LABS: Neutrophils Absolute Manual 12324 /uL (3000-5900); Nucleated Red Blood Cells 45 #/Diff; Total Cells Counted 100
[2023-10-05 06:19] LABS: Alanine Aminotransferase 74 IU/L (<35); Albumin 3.6 g/dL (3.5-5.0); Albumin Globulin Ratio 1.5 (1.0-2.8); Alkaline Phosphatase 42 U/L (38-126); Anisocytosis 4+; Aspartate Aminotransferase 91 IU/L (14-36); BUN Creatinine Ratio 29.1 (6-22); Bilirubin Total 3.3 mg/dL (0.2-1.3); Blood Urea Nitrogen 16 mg/dL (7-17); Calcium 8.5 mg/dL (8.4-10.2); Carbon Dioxide 28 mmol/L (22-32); Chloride 107 mmol/L (98-107); Estimated Glomerular Filt Rate > 60 mL/min (>60); Globulin 2.4 g/dL (1.7-4.1); Glucose 74 mg/dL (70-100); HEMOLYSIS < 15 (0-50); Macrocytosis 2+; Polychromasia 2+; Potassium 4.4 mmol/L (3.4-5.1); Sodium 136 mmol/L (137-145)
[2023-10-05 06:50] VITALS: O2SAT 98
[2023-10-05 08:00] VITALS: BP 141/82; PULSE 82; RESP 16; TEMP 36.6; O2SAT 100
[2023-10-05] MEDS: LACTOBACILLUS ACIDOPHILUS TABLET 1 EACH PO (08:34)
[2023-10-05] MEDS: cephALEXin 250 MG CAPSULE 500 MG PO (08:34)
--- NOTE | 2023-10-05 12:20 | PM.DS.1 ---
History of Present Illness History of Present Illness Date Patient Seen: 10/05/23 Time Patient Seen: 12:20 Chief complaint: Hemolytic Anemia symptoms returned Narrative: Per overnight admittin provider, 22 years old female with recent diagnosis of Tu positive hemolytic anemia, hyperbilirubinemia, recent hospitalization requiring blood transfusion and other medical issues presented to the emergency room for progressive weakness, shortness of breath with minimal exertion increasing pallor and worsening jaundice. Denies any fever episodes cough wheezing headache or upper respiratory symptoms. Does have chest tightness with exertion. Denies any abdominal pain nausea or vomiting. No blood in the urine or in the stool. Patient was recently transferred to [facility] and during workup was noted to have significantly. She was treated with IV Solu-Medrol and transition to prednisone 150 mg daily with plans to add Rituxan in 2 weeks. Subsequent workup in the emergency room here showed a hemoglobin of 6.1 with a platelet count of 355 and a WBC of 43.2. Sodium is 136, BUN of 21 creatinine of 0.61, total bilirubin of 4.8, AST of 177 and ALT of 88. BNP is 31. Urinalysis is positive for nitrites and leukocyte esterase. Chest x-ray shows no acute process. Emergency room provider discussed with Dr. menendez with hematology oncology at [facility]. Was advised blood transfusion here at the [facility] for now with a target hemoglobin of 7.0 or above. Patient was admitted for further evaluation Today, patient reports compliance with prednisone. It took significant time to adequately get patient her blood here. Now infusing. She feels better. Repeat h/h before transfusion was minimally changed at 5.9. Now getting 2U will assess response. Re-ordered home prednisone 150 mg. Discharge Providers Provider Date of admission: 10/04/23 00:35 Discharge Date: 10/05/23 Primary care physician: Doctor Cintia MD Discharge provider: Teto Mabry DO Summary Hospital Course Discharge Diagnosis: 1. AIHA (autoimmune hemolytic anemia) 2. Obesity 3. Leukocytosis 4. asymptomatic bacteuria Hospital Course: This is a 22 year old female with recent diagnosis of an autoimmune hemolytic anemia who was admitted with worsened anemia, presenting with a Hg of 6.1. She responded well to 2 U PRBC transfusion with improvement to Hg of around 8. The patient reported no shortness of breath symptoms and much improvement. Patient's bilirubin slowly improved as well. Initially case was discussed with the rail specialist at [facility], whom recommended continuation of patient 150 mg prednisone. Discussed continued monitoring in the hospital or discharge home, and patient elected for discharge home with self monitoring of symptoms of anemia after discussion of risks and benefits. She was discharged more quickly than expected given clinical improvement. Repeat lab evaluation for the lab here was ordered to bridge her to hematology appointment. She was continued on her folic acid, omeprazole, and 150 mg prednisone on discharge. There was a possible acute cystitis, but more likely asymptomatic bacteuria given no presenting symptoms and antibiotics were not continued at discharge. She was encouraged to continue to seek to find a PCP locally. Time Spent with Patient Time spent: Greater than 30 minutes Exam Vital Signs (past 8 hours): - 10/05/23 06:50 10/05/23 08:00 Temperature 97.8 F Pulse Rate 82 Respiratory Rate 16 Blood Pressure 141/82 H Pulse Oximetry 98 100 Oxygen Flow Rate 0 0 Oxygen Delivery Method Room Air Oxygen Flow Rate 0 Narrative Exam Narrative: Gen: obese female NAD CV: borderline tachycardia at 100, no m/r/g Pulm: CTA b/l Abd: S NT ND Ext: no edema Objective Labs 10/05/23 05:53 10/05/23 05:53 Labs: Laboratory Results - last 24 hr 10/03/23 10/04/23 10/05/23 23:28 19:55 05:53 WBC 23.7 H RBC 2.20 L Hgb 8.3 L 8.0 L Hct 24.1 L 23.7 L MCV 107.8 H D MCH 36.4 H MCHC 33.8 RDW 28.4 H Plt Count 253 Neut % (Auto) Not Reportable Lymph % (Auto) Not Reportable [place] % (Auto) Not Reportable Eos % (Auto) Not Reportable Baso % (Auto) Not Reportable Lymph # (Auto) Not Reportable [place] # (Auto) Not Reportable Baso # (Auto) Not Reportable Total Counted 100 Seg Neutrophils % 50.0 Band Neutrophils % 2.0 L Lymphocytes % (Manual) 32.0 Atypical Lymphs % 2.0 H Monocytes % (Manual) 8.0 Metamyelocytes % 3.0 H Myelocytes % 3.0 H Neutrophils # (Manual) 57214 H Nucleated RBCs 45 H Differential Comment Not Reportable RBC Morphology See below Polychromasia 2+ H Anisocytosis 4+ H Macrocytosis 2+ H Sodium 136 L Potassium 4.4 Chloride 107 Carbon Dioxide 28 BUN 16 Creatinine 0.55 Estimated GFR > 60 BUN/Creatinine Ratio 29.1 H Glucose 74 Calcium 8.5 Total Bilirubin 3.3 H AST 91 H ALT 74 H Alkaline Phosphatase 42 Total Protein 6.0 L Albumin 3.6 Globulin 2.4 Albumin/Globulin Ratio 1.5 Blood Type A Positive Antibody Screen Positive Antibody Identification Warm Auto Antibody Crossmatch See Detail PENDING SALE TO [facility] Medical History (Updated 10/04/23 @ 16:58 by Teto Mabry DO) AIHA (autoimmune hemolytic anemia) Social History household members: significant other Smoking Status: Current every day smoker Discharge Plan Discharge Plan Patient Disposition: Home Provider Discharge Comment: You were admitted to the hospital with recurrent anemia. No changes to medications currently. Labs ordered for Tuesday to make sure blood counts remain stable. Please follow up with oncology as planned.. Discharge orders & Medications Prescriptions: Continued omeprazole 40 mg capsule,delayed release(DR/EC) 40 mg PO DAILY prednisone 50 mg tablet 150 mg PO DAILY folic acid 1 mg tablet 1 mg PO DAILY Follow up/Referrals: Doctor Chamberlain MD [Primary Care Provider] - Other Ambulatory Orders: Complete Blood Count AUTO DIFF (Routine) Timeframe: 5 Days Facility: [facility] - Location: Laboratory Ordered By: Teto Mabry Comprehensive Metabolic Panel (Routine) Timeframe: 5 Days Facility: [facility] - Location: Laboratory Ordered By: Teto Mabry Diet/Activity/Treatments Diet: Diet as Tolerated and Regular Activity: As tolerated Visit Report/Discharge Packet Stand Alone Forms: Patient Portal/API, Stroke Signs & Symptoms Discharge Data Primary Care Provider: Doctor Cintia Attending Provider: Gabe Nelson Admit Date/Time: 10/04/23 00:35
--- NOTE | 2023-10-05 14:06 | PC.NURSE ---
Discharge Note Patient A&O, VSS, RA, no complaints of pain/discomfort. Patient agreeable to discharge plan, discharge packet reviewed with patient, all questions/concerns addressed. PIV discontined. Patient able to dress self and pack all belongings. Patient taken down via wheelchair to POV and reminded to have blood drawn on Tuesday per MD instruction.
== END 2023-10-05 13:35 | disposition home or self-care (01) ==
LOC: ED 10-04 00:35 → AC 10-04 00:35
PROVIDERS: Internal Medicine; Admitting Provider Internal Medicine; Emergency Provider Emergency Medicine; Referring Provider Emergency Medicine; Visit Provider Internal Medicine
DX: D59.10 Autoimmune hemolytic anemia, unspecified (principal); Z67.10 Type A blood, Rh positive; E66.9 Obesity, unspecified; D72.829 Elevated white blood cell count, unspecified; R82.71 Bacteriuria
CPT/HCPCS: 36415; 36430; 71046; 80053; 81003; 81015; 81025; 82550; 82962; 83605; 83690; 83735; 83880; 84484; 85007; 85014; 85018; 85025; 85610; 85730; 86850; 86870; 86900; 86901; 86945; 87086; 93005; 93010; 96360; 96361; 99284; 99291; G0378; P9016

== ENCOUNTER → 2023-10-10 11:05 | Outpatient (CLI) | payer OTHER, MEDICAID, SELFPAY ==
[2023-10-04 01:36] VITALS: BMI 46.0
[2023-10-10 12:11] LABS: Hematocrit 27.2 % (36-46); Hemoglobin 9.4 g/dL (12.0-16.0); Mean Corpuscular HGB Conc 34.6 % (30-36); Mean Corpuscular Hemoglobin 37.9 PG (26-34); Mean Corpuscular Volume 109.7 fL (80-100); Platelet Count 377 X10^3/uL (150-400); Red Blood Cell Count 2.48 X10^6/uL (4.0-5.2); Red Cell Distribution Width 31.4 % (11.6-14.8); White Blood Cell Count 18.5 X10^3/uL (4.5-11.0)
[2023-10-10 12:17] LABS: Add Manual Diff / Slide Review YES
[2023-10-10 12:21] LABS: Alanine Aminotransferase 70 IU/L (<35); Albumin Globulin Ratio 1.5 (1.0-2.8); Alkaline Phosphatase 44 U/L (38-126); Aspartate Aminotransferase 55 IU/L (14-36); BUN Creatinine Ratio 24.6 (6-22); Bilirubin Total 3.7 mg/dL (0.2-1.3); Blood Urea Nitrogen 14 mg/dL (7-17); Calcium 8.8 mg/dL (8.4-10.2); Carbon Dioxide 26 mmol/L (22-32); Chloride 105 mmol/L (98-107); Estimated Glomerular Filt Rate > 60 mL/min (>60); Globulin 2.7 g/dL (1.7-4.1); Glucose 120 mg/dL (70-100); HEMOLYSIS 33 (0-50); Potassium 4.6 mmol/L (3.4-5.1); Sodium 137 mmol/L (137-145); Total Protein 6.7 g/dL (6.3-8.2)
[2023-10-10 13:36] LABS: Anisocytosis 4+; Neutrophils Absolute Manual 12765 /uL (3000-5900); Nucleated Red Blood Cells 1 #/Diff; Total Cells Counted 100
[2023-10-10 13:37] LABS: Macrocytosis 2+
[2023-10-10 13:38] LABS: Smudge Cells 1+; Spherocytes 2+
== END ==
LOC: LAB 11:06
PROVIDERS: Referring Provider Internal Medicine; Visit Provider Internal Medicine
DX: D58.9 Hereditary hemolytic anemia, unspecified (principal)
CPT/HCPCS: 36415; 80053; 85007; 85025

== ENCOUNTER 2023-11-18 06:58 | Emergency (ER) | payer OTHER, MEDICAID, SELFPAY ==
[2023-10-04 01:36] VITALS: BMI 46.0
[2023-11-18 07:01] VITALS: BP 129/82; PULSE 85; RESP 19; TEMP 36.2; O2SAT 100; BMI 40.4
--- NOTE | 2023-11-18 07:28 | DI.RAD.S_ITS ---
PROCEDURE: XR KNEE LT 3V INDICATIONS: pain/swelling, atraumatic TECHNIQUE: 3 views of the knee were acquired. COMPARISON: None. FINDINGS: Bones: No fractures or dislocations. No patellar subluxation. No suspicious bony lesions. Soft tissues: No joint effusion. No suspicious soft tissue calcifications. IMPRESSION: No acute knee fracture or dislocation. No significant joint effusion. Dictated by: Sarath Valencia M.D. on 11/18/2023 at 8:07 Approved by: Sarath Valencia M.D. on 11/18/2023 at 8:07
--- NOTE | 2023-11-18 08:05 | ED_ITS ---
HPI - Extremity Problem General Chief complaint: Extremity Problem,Nontraumatic Stated complaint: left knee pain Time Seen by Provider: 11/18/23 07:08 Source: patient Mode of arrival: Wheelchair History of Present Illness HPI Narrative: Patient is a 22-year-old female with Tu positive hemolytic anemia on high- dose prednisone presenting today with left knee pain. She denies any sort of injury or fall. She does have some pain and feels like it is swollen. No fever or redness Related Data Home Medications Medication Instructions Recorded Confirmed folic acid 1 mg tablet 1 mg PO DAILY 10/04/23 10/04/23 omeprazole 40 mg capsule,delayed 40 mg PO DAILY 10/04/23 10/04/23 release prednisone 50 mg tablet 150 mg PO DAILY 10/04/23 10/04/23 Allergies Allergy/AdvReac Type Severity Reaction Status Date / Time No Known Drug Allergies Allergy Verified 09/18/23 18:44 Patient History Medical History AIHA (autoimmune hemolytic anemia) Social History household members: significant other Smoking Status: Current every day smoker Smoking Status: Current every day smoker tobacco type: vaping alcohol intake frequency: a few times a month Substance Use Type: marijuana Exam Initial Vital Signs Initial Vital Signs: Vital Signs Temperature 97.1 F L 11/18/23 07:01 Pulse Rate 85 11/18/23 07:01 Respiratory Rate 19 11/18/23 07:01 Blood Pressure 129/82 11/18/23 07:01 Pulse Oximetry 100 11/18/23 07:01 Oxygen Delivery Method Room Air 11/18/23 07:01 GENERAL: Well-appearing, well-nourished and in no acute distress. CARDIOVASCULAR: peripheral pulses in tact, cap refill <2 sec RESPIRATORY: No respiratory distress, speaks in full sentences without difficulty EXTREMITIES: Normal range of motion, no clubbing or edema. Neurovascularly intact Both lower extremity knee is stable no significant erythema distal pedal pulse intact negative anterior-posterior drawer NEUROLOGICAL: Cranial nerves II through XII grossly intact. Normal gait and speech. SKIN: Warm, dry, no petechiae, no rashes or lesions. Course Orders Ordered: ED Orders 11/18/23 07:28 XR knee LT 3V Stat Vital Signs Vital signs: Vital Signs - 8 hr 11/18/23 07:01 Temperature 97.1 F L Pulse Rate 85 Respiratory Rate 19 Blood Pressure 129/82 Pulse Oximetry 100 Oxygen Delivery Method Room Air MDM - Extremity (Nontraumatic) Imaging Data Extremity x-ray #1: My Impression: Negative for fracture Radiologist's Impression: PROCEDURE: XR KNEE LT 3V INDICATIONS: pain/swelling, atraumatic TECHNIQUE: 3 views of the knee were acquired. COMPARISON: None. FINDINGS: Bones: No fractures or dislocations. No patellar subluxation. No suspicious bony lesions. Soft tissues: No joint effusion. No suspicious soft tissue calcifications. IMPRESSION: No acute knee fracture or dislocation. No significant joint effusion. Dictated by: Sarath Valencia M.D. on 11/18/2023 at 8:07 Approved by: Sarath Valencia M.D. on 11/18/2023 at 8:07 [facility] Narrative Medical decision making narrative: 22-year-old female with hemolytic anemia presenting today with knee pain. Atraumatic no fever erythema to suggest septic joint. X-ray is negative for fracture. Suspect a sprain. She reports that it does hurt to bear weight. She has given a knee brace and crutches. I do not recommend ibuprofen she is on high-dose prednisone with her hemolytic anemia. She is Tylenol at home. Patient's hemolytic anemia is stable she starts Rituxan next week she is followed by Heme-Onc at [place]. She is also getting signed a primary care provider through the. Discharge Plan Departure Patient Disposition: Home Clinical Impression: Left knee sprain Instructions: DI for Knee Sprain Activity Restrictions/Additional Instructions: *You have been diagnosed with left knee sprain *What to do: Wear knee brace definitely while active you may find that you need it at nighttime to. Use crutches as needed. May increase weight-bearing as tolerated. Elevate and ice as often as possible. You may require an outpatient MRI. *Continue to take medications as directed *Follow up with your primary care provider in 2-3 days or call [phone] *Return to ER if you should have increasing pain redness swelling or any new, worsening or concerning symptoms Prescriptions: No Action omeprazole 40 mg capsule,delayed release(DR/EC) 40 mg PO DAILY prednisone 50 mg tablet 150 mg PO DAILY folic acid 1 mg tablet 1 mg PO DAILY Referrals: Miscellaneous,Doctor, MD [Primary Care Provider] - Stand Alone Forms: Patient Portal/API
[2023-11-18 08:34] VITALS: BP 120/78; PULSE 80; RESP 16; O2SAT 97
== END 2023-11-18 08:35 | disposition home or self-care (01) ==
PROVIDERS: Emergency Provider Emergency Medicine
DX: S83.92XA Sprain of unspecified site of left knee, initial encounter (principal); D58.9 Hereditary hemolytic anemia, unspecified
CPT/HCPCS: 73562; 99283

== ENCOUNTER 2024-05-25 20:26 | Emergency (ER) | payer OTHER, MEDICAID, SELFPAY ==
[2023-10-04 01:36] VITALS: BMI 46.0
[2024-05-25 20:54] VITALS: BP 144/101; PULSE 105; RESP 18; TEMP 37.4; O2SAT 99; BMI 45.1
--- NOTE | 2024-05-25 20:58 | DI.RAD.S_ITS ---
PROCEDURE: XR CHEST 1V INDICATIONS: Shortness of breath TECHNIQUE: One view of the chest was acquired. COMPARISON: [facility], CR, XR CHEST 2V, 10/03/2023, 21:54. FINDINGS: Surgical changes and devices: None. Lungs and pleura: Mild perihilar bronchial wall thickening. Small patchy alveolar opacity laterally in the right mid lung. No other consolidation, effusion, or pneumothorax. Mediastinum: Mediastinal contours appear normal. Heart size is normal. Bones and chest wall: No suspicious bony lesions. Overlying soft tissues appear unremarkable. IMPRESSION: Mild perihilar bronchial wall thickening may be secondary to bronchitis. Small patchy right lateral mid lung opacity is probably small pneumonia. Follow-up chest x-ray to document clearance following treatment is recommended. Dictated by: Emperatriz Mccormick M.D. on 05/25/2024 at 21:57 Approved by: Emperatriz Mccormick M.D. on 05/25/2024 at 21:58
--- NOTE | 2024-05-25 20:58 | EKG_ITS ---
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
--- NOTE | 2024-05-25 21:05 | EKG_ITS ---
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
[2024-05-25 21:39] LABS: Add Manual Diff / Slide Review NO; Basophils Absolute Auto 100 /uL (0-100); Eosinophils Absolute Auto 100 /uL (0-450); Eosinophils Percent Auto 1.5 % (2-4); Hematocrit 44.7 % (36-46); Hemoglobin 14.8 g/dL (12.0-16.0); Lymphocytes Absolute Auto 2100 /uL (1100-4500); Lymphocytes Percent Auto 27.7 % (25-40); Mean Corpuscular HGB Conc 33.1 % (30-36); Mean Corpuscular Hemoglobin 29.8 PG (26-34); Mean Corpuscular Volume 90.2 fL (80-100); Monocytes Absolute Auto 700 /uL (0-900); Monocytes Percent Auto 8.9 % (3-14); Neutrophils Absolute Auto 4700 /uL (1500-7000); Neutrophils Percent Auto 60.9 % (50-75); Platelet Count 347 X10^3/uL (150-400); Red Blood Cell Count 4.96 X10^6/uL (4.0-5.2); Red Cell Distribution Width 12.7 % (11.6-14.8); White Blood Cell Count 7.7 X10^3/uL (4.5-11.0)
[2024-05-25 21:45] LABS: INR 1.1 (0.9-1.3)
[2024-05-25 21:49] LABS: Alanine Aminotransferase 161 IU/L (<35); Albumin 4.2 g/dL (3.5-5.0); Albumin Globulin Ratio 1.4 (1.0-2.8); Alkaline Phosphatase 47 U/L (38-126); Aspartate Aminotransferase 104 IU/L (14-36); BUN Creatinine Ratio 9.1 (6-22); Bilirubin Total 0.9 mg/dL (0.2-1.3); Blood Urea Nitrogen 6 mg/dL (7-17); Calcium 9.3 mg/dL (8.4-10.2); Carbon Dioxide 23 mmol/L (22-32); Chloride 107 mmol/L (98-107); Estimated Glomerular Filt Rate > 60 mL/min (>60); Globulin 2.9 g/dL (1.7-4.1); Glucose 104 mg/dL (70-100); HEMOLYSIS < 15 (0-50); Potassium 3.5 mmol/L (3.4-5.1); Sodium 139 mmol/L (137-145); Total Protein 7.1 g/dL (6.3-8.2)
[2024-05-25 21:56] LABS: Lactate (Lactic Acid) 1.5 mmol/L (0.7-2.1)
[2024-05-25 22:01] LABS: Troponin I < 0.012 ng/mL (0.01-0.034)
[2024-05-25 22:28] LABS: NT-proBNP (BNP-Adult 18+) < 20 pg/mL (<125)
[2024-05-26] VITALS (8 sets, daily range): BP systolic 125–188; BP diastolic 57–86; PULSE 82–97; RESP 13–23; TEMP 36.4; O2SAT 98–100
--- NOTE | 2024-05-26 02:02 | ED_ITS ---
HPI - General Adult General Chief complaint: Weakness Stated complaint: hx hemolytic anemia jaundiced eyes SOB hematuria Time Seen by Provider: 05/26/24 02:02 Source: patient, RN notes reviewed and old records reviewed Mode of arrival: Wheelchair Limitations: no limitations History of Present Illness HPI narrative: 23-year-old female with a history of autoimmune hemolytic anemia recently recovered after steroids. Patient has been off steroids for approximately a month. Was on steroids for approximately 2 months. Continues to follow up with Oncology through [facility]. Patient states she was felt a little bit lightheaded. Denies any fevers or chills. No cold cough or congestion symptoms recently did have a cold in March which lingered. Denies any chest pain. Patient notes a little bit of shortness of breath. She has had some mild nausea, denies vomiting. Denies any diarrhea or constipation. Has noted her urine has been darker but is currently on her menses. She was not had any dysuria urgency or frequency. Patient states Feels like she was jaundiced thinks blood in her urine. Patient did have a lot of swelling when on prednisone but that has improved. Patient is currently not on any prescription medications. No prior surgeries. No known drug allergies. Does use tobacco, occasional alcohol, uses marijuana no other recreational drugs. Patient does have a Nexplanon in place. Had travel to [place] in March. Related Data Home Medications Medication Instructions Recorded Confirmed folic acid 1 mg tablet 1 mg PO DAILY 10/04/23 10/04/23 omeprazole 40 mg capsule,delayed 40 mg PO DAILY 10/04/23 10/04/23 release prednisone 50 mg tablet 150 mg PO DAILY 10/04/23 10/04/23 Previous Rx's Medication Instructions Recorded amoxicillin 875 mg-potassium 1 tab PO BID #20 tabs 05/26/24 clavulanate 125 mg tablet Allergies Allergy/AdvReac Type Severity Reaction Status Date / Time No Known Drug Allergies Allergy Verified 09/18/23 18:44 Review of Systems Review of Systems ROS Unobtainable: All systems reviewed & are unremarkable except as noted in HPI and below Patient History Medical History AIHA (autoimmune hemolytic anemia) Social History household members: significant other tobacco type: vaping alcohol intake frequency: a few times a month Exam Narrative Exam Narrative: GENERAL: Alert and oriented x three, obese female in no acute distress HEENT: Head normocephalic, atraumatic, EOMI, pupils reactive, face symmetric, moist mucous membranes NECK: Supple, full range of motion CARDIOVASCULAR: Regular rate and rhythm without murmurs, rubs or gallops. RESPIRATORY: Breath sounds equal bilaterally, no wheezes rales or rhonchi. No tachypnea or accessory muscle use ABDOMEN: Soft, nontender. Normoactive bowel sounds all 4 quadrants. No guarding or rebound, rigidity, no mass : No CVA tenderness EXTREMITIES: Normal range of motion, no clubbing or edema. Neurovascularly intact NEUROLOGICAL: Cranial nerves II through XII grossly intact. Moving all extremities SKIN: Warm, dry, no petechiae, no rashes or lesions. Initial Vital Signs Initial Vital Signs: Vital Signs Temperature 99.3 F 05/25/24 20:54 Pulse Rate 105 H 05/25/24 20:54 Respiratory Rate 18 05/25/24 20:54 Blood Pressure 144/101 H 05/25/24 20:54 Pulse Oximetry 99 05/25/24 20:54 Oxygen Delivery Method Room Air 05/25/24 20:54 Course Orders Ordered: Discontinued Medications Amoxicillin/Clavulanate Potassium (Amoxicillin/Clav 875/125 Mg) 1 tab PO NOW ONE Stop: 05/26/24 02:26 Last Admin: 05/26/24 02:33 Dose: 1 tab Documented By: AB Vital Signs Vital signs: Vital Signs - 8 hr 05/25/24 20:54 05/26/24 00:25 05/26/24 00:54 Temperature 99.3 F 97.5 F L Pulse Rate 105 H 82 94 H Respiratory Rate 18 17 Blood Pressure 144/101 H 188/82 H Pulse Oximetry 99 98 100 Oxygen Delivery Method Room Air Room Air Room Air 05/26/24 00:56 05/26/24 00:56 05/26/24 01:00 Temperature Pulse Rate 96 H Respiratory Rate Blood Pressure 153/86 H 146/70 H Pulse Oximetry 100 Oxygen Delivery Method Room Air 05/26/24 01:00 05/26/24 01:30 05/26/24 01:30 Temperature Pulse Rate 97 H 90 Respiratory Rate 19 Blood Pressure 128/57 L Pulse Oximetry 99 100 Oxygen Delivery Method 05/26/24 02:00 05/26/24 02:00 Temperature Pulse Rate 86 Respiratory Rate 23 Blood Pressure 128/61 Pulse Oximetry 100 Oxygen Delivery Method Medical Decision Making Lab Data 05/25/24 21:22 05/25/24 21:22 Labs: Lab Results 05/25/24 Range/Units 21:22 WBC 7.7 (4.5-11.0) X10^3/uL RBC 4.96 (4.0-5.2) X10^6/uL Hgb 14.8 (12.0-16.0) g/dL Hct 44.7 (36-46) % MCV 90.2 (80-100) fL MCH 29.8 (26-34) PG MCHC 33.1 (30-36) % RDW 12.7 (11.6-14.8) % Plt Count 347 (150-400) X10^3/uL Neut % (Auto) 60.9 (50-75) % Lymph % (Auto) 27.7 (25-40) % Glades % (Auto) 8.9 (3-14) % Eos % (Auto) 1.5 L (2-4) % Baso % (Auto) 1.0 (0-2) % Neut # (Auto) 4700 (8849-7391) /uL Lymph # (Auto) 2100 (9739-6360) /uL Glades # (Auto) 700 (0-900) /uL Eos # (Auto) 100 (0-450) /uL Baso # (Auto) 100 (0-100) /uL PT 13.0 H (9.4-12.5) SECONDS INR 1.1 (0.9-1.3) Sodium 139 (137-145) mmol/L Potassium 3.5 (3.4-5.1) mmol/L Chloride 107 (98-107) mmol/L Carbon Dioxide 23 (22-32) mmol/L BUN 6 L (7-17) mg/dL Creatinine 0.66 (0.52-1.04) mg/dL Estimated GFR > 60 (>60) mL/min BUN/Creatinine Ratio 9.1 (6-22) Glucose 104 H (70-100) mg/dL Lactate 1.5 (0.7-2.1) mmol/L Calcium 9.3 (8.4-10.2) mg/dL Total Bilirubin 0.9 (0.2-1.3) mg/dL AST 104 H (14-36) IU/L ALT 161 H (<35) IU/L Alkaline Phosphatase 47 (38-126) U/L Troponin I < 0.012 (0.01-0.034) ng/mL NT-Pro-B Natriuret Pep < 20 (<125) pg/mL Total Protein 7.1 (6.3-8.2) g/dL Albumin 4.2 (3.5-5.0) g/dL Globulin 2.9 (1.7-4.1) g/dL Albumin/Globulin Ratio 1.4 (1.0-2.8) ECG Data Attestation: I personally reviewed and interpreted this ECG as follows: Interpretation: Sinus tachycardia rate of 105 RI 118 QRS of 90 QTC of 470, no acute ST elevation or depression noted. MDM Narrative Medical decision making narrative: EKG shows sinus tachycardia rate of 105, patient was prior from 10/03/2023 with no acute change. Labs show white count of 7.7 hemoglobin of 14 platelets of 347. INR is 1.1, electrolytes are otherwise appropriate BUN 6 creatinine 0.66, glucose is 104 AST is 104 ALT is 61 bilirubin is 0.9, troponins less than 0.012 with a BNP of less than 20. Chest x-ray shows mild peribronchial wall thickening maybe secondary bronchitis small patchy right lateral mid lung opacity probable small pneumonia. Recommend follow up x-ray to document clearance following treatment. 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 Patient states had a cold after traveling to [place] about 2 months ago that had resolved. She was has a little bit of shortness of breath was concerned that her hemolytic anemia maybe returning. Lab workup today does not show any can changes consistent with that. Chest x-ray shows appears to be little bit of pneumonia. Discussed patient has some risk factors for pulmonary embolism she was slightly tachycardic but has no other major vital sign changes. After discussing about obtaining CT chest angio patient defers and we will go ahead and treat pneumonia at this time. Patient and I discussed low threshold to return as we have not fully ruled out pulmonary embolism although my suspicion for pneumonia is higher. Discussed return precautions patient feels comfortable with that plan. Discharge Plan Departure Patient Disposition: Home Clinical Impression: Pneumonia Instructions: DI for Pneumonia -- Adult Activity Restrictions/Additional Instructions: Follow up for recheck. Take antibiotics until completed. Your chest x-ray does show changes consistent with pneumonia recommend follow up chest x-ray and proximally 6-8 weeks to make sure changes have resolved. Prescription for antibiotics sent to [facility] in [place]. Please return for fevers, new chest pain or increased shortness of breath, lightheadedness or passing out, coughing up blood, new swelling of your extremities, vomiting or other new or concerning changes Prescriptions: New amoxicillin-pot clavulanate 875-125 mg tablet 1 tab PO BID Qty: 20 0RF No Action omeprazole 40 mg capsule,delayed release(DR/EC) 40 mg PO DAILY prednisone 50 mg tablet 150 mg PO DAILY folic acid 1 mg tablet 1 mg PO DAILY Referrals: Miscellaneous,Doctor, [Primary Care Provider] - Stand Alone Forms: Patient Portal/API/Survey
[2024-05-26] MEDS: AMOXICILLIN/CLAV 875/125 MG 1 TAB PO (02:33)
== END 2024-05-26 02:37 | disposition home or self-care (01) ==
PROVIDERS: Emergency Provider Emergency Medicine
DX: J18.9 Pneumonia, unspecified organism (principal); R11.0 Nausea; R00.0 Tachycardia, unspecified
CPT/HCPCS: 36415; 71045; 80053; 83605; 83880; 84484; 85025; 85610; 93005; 99284